=== PATIENT | female | born 1930 | race Caucasian/White ===

== ENCOUNTER → 2018-08-24 | Outpatient (CLI) | payer OTHER, MEDICARE ==
[~2018-08-24] VITALS: Ht 167.6 cm; Wt 49.9 kg
[~2018-08-24] MED LIST: ACID CONTROLLER20 MG PO; ASPIR 8181 MG PO; ATENOLOL 25MG T25 M1 PO; ATIVAN1 MG PO; AVAPRO300 MG PO; COLACE100 MG PO; COZAAR 50 MG TA50 M2 PO; DILTIAZEM ER180 MG PO; DILTIAZEM ER360 MG PO; ELIQUIS2.5 MG PO; EXFORGE 10-3201 EACH PO; FEVERALL650 MG RECTAL; FISH OIL 1,0001 EAC8 PO; FOSAMAX 70 MG T70 MG PO; LEVAQUIN 250 M250 MG PO; MAG-AL PLUS SUS30 ML PO; MILK OF MA2400 MG/10 PO; NICOTINE TRANSD21 M1 TRANSDERM; NICOTINE TRANSDE7 MG TD; OMEGA 3 1,0001 EACH PO; PEPCID20 MG PO; PLAVIX 75 MG TA75 M1 PO; PRAVACHOL20 MG PO; PREMARIN0.9 M1 PO; PROTONIX40 M1 PO; SENNA LAXATIVE1 EACH PO; SODIUM CHLORIDE 0.9% IV; SPIRONOLACTONE25 M1 PO; TENORMIN50 MG PO; TRINATE TABLET1 TAB PO; TYLENOL325 MG PO; UNICOMPLEX M TA1 TA1 PO; VITAMIN B-1100 M1 PO; VITAMIN B-12500 MCG PO; VITAMIN D1000 UNI1 PO; VITAMIN D31000 UNI2 PO
--- NOTE | ~2018-08-24 | P ---
[facility] [place] [address] PROCEDURE REPORT Name: YOJANA PRESSLEY [facility] #: [facility] [id number] Admission: 08/24/18 ������������������ Attend Phys: Nas Cedillo Discharge: ������������������ Date of : 32 Report #: [id number] THIS REPORT FOR: //name// CC: Nas Hernández MD DATE OF SERVICE: 08/24/2018 PROCEDURE PERFORMED: Colonoscopy with biopsies and bleeding control. HISTORY OF PRESENT ILLNESS: The patient is an 88-year-old female with intermittent bright red blood per rectum beginning approximately 6-7 weeks ago. She then held her Eliquis and Plavix, which she takes for history of CVA for 3 or 4 weeks. No further bleeding, but then had recurrent bleeding when it was restarted. Her weight has been fairly stable. She denies any constipation or diarrhea. Her last colonoscopy was approximately 10 years ago and reportedly had polyps at that time. There is no family history of colon cancer. She denies any abdominal pain. Plan is for colonoscopy. DESCRIPTION OF PROCEDURE: The risks and benefits of the procedure were explained to the patient, those risks including but not limited to bleeding, perforation and the risk of sedation. She understood these risks and gave informed consent. Sedation was given using propofol per Anesthesia. Next, a digital rectal exam showed small external hemorrhoids, nonbleeding, otherwise normal. Next, using a standard Olympus colonoscope, the scope was placed in the patient's anus and advanced under direct vision to the cecum. The overall prep was good. In the cecum, there was a 3 mm sessile polyp. This was removed with cold forceps. There was a small amount of bleeding after this was removed; therefore, I used a 7-Upper Sorbian bipolar cautery. No further bleeding was noted after cauterization. Otherwise, normal cecum. The ileocecal valve was normal. The ascending, transverse and descending colon were normal. In the sigmoid colon, another 4 mm sessile polyp was noted and removed with cold forceps. No evidence of bleeding after removal. Multiple diverticula were noted scattered throughout the sigmoid colon, no evidence of recent bleeding or inflammation. The rectal mucosa was normal. On retroflexion, small to medium sized nonbleeding internal hemorrhoids were noted. Close examination of the anal canal showed no evidence of anal fissure. There was no active bleeding. The scope was then withdrawn and the procedure terminated. The patient tolerated the procedure well. IMPRESSION: 1. Sigmoid diverticulosis, no stigmata of recent bleeding. [address] [address] PROCEDURE REPORT Name: YOJANA PRESSLEY Room #: REG ROE Villegas#: [id number] Admission: 08/24/18 ������������������ Attend Phys: Nas Cedillo Discharge: ������������������ Date of : 32 Report #: [id number] 2. Two small colonic polyps. 3. Small to medium sized internal hemorrhoids, likely cause of recent bright red blood per rectum. No active bleeding at this time. 4. Small external hemorrhoids. RECOMMENDATIONS: 1. Await biopsy results. 2. Recommend high fiber diet. 3. Analpram on a p.r.n. basis. Thank you for allowing me to participate in her care. ��������������������������������������������� ���������������������������������������� By: ��������������������������������������������� 1057 0057 Nas Andrade MD /nt
--- NOTE | 2018-08-25 14:06 | PATH ---
[facility] [address] [place] [address] PATHOLOGY RPT PROCEDURE Name: YOJANA BABCOCK Room #: REG ROE Arriaza.#: [id number] ������������������ Admission: 08/24/18 ������������������ Date of : 32 Discharge: Report #: [id number] Path Case #: [id number] [facility] Accession Number: [id number] . 01 Material submitted: . PART A: cecum - BX OF POLYP AT CECUM PART B: colon - BX OF POLYP AT SIGMOID COLON. Modifiers: sigmoid . 01 Clinical history: . Pre-OP DX: Blood in stool Post-OP DX: Internal hemorrhoids, diverticulosis, 2 polyps . 02 Diagnosis: A. Polyp, at cecum, endoscopic biopsy: - Tubular adenoma. - Negative for high-grade dysplasia. . B. Polyp, at sigmoid colon, endoscopic biopsy: - Tubular adenoma. - Negative for high-grade dysplasia. . (IUV:aristides; 08/25/2018) MBLoan/08/25/2018 . 02 Electronically signed: . Gisel Boone MD, Pathologist NPI- [id number] . 01 Gross description: . A. Received in formalin labeled "Yjoana Babcock, BX of polyp at cecum," is a single segment of gomes soft tissue measuring 0.5 cm in maximum dimension. The specimen is entirely submitted in cassette A1. . B. Received in formalin labeled "Yojana Babcock, BX of polyp at sigmoid colon," is a single segment of gomes soft tissue measuring 0.3 cm in maximum dimension. The specimen is entirely submitted in cassette B1. (TSD; 08/24/2018) TOB/TOB . 02 Pathologist provided ICD-10: D12.0, D12.5 . 02 CPT . 100678, 675902 Specimen Comment: A courtesy copy of this report has been sent to Specimen Comment: [phone], , . Specimen Comment: Report sent to JUSTIN Restrepo / [place] [address] PATHOLOGY RPT PROCEDURE Name: YOJANA BABCOCK Room #: REG ROE Villegas#: [id number] ������������������ Admission: 08/24/18 ������������������ Date of : 32 Discharge: Report #: [id number] Path Case #: [id number] Performed at: [address], [place], [place] [id number] MD Jose G Gonzalez MD Phone: [phone] Performed at: [address] [id number] MD Gisel Boone MD Phone: [phone]
== END | disposition home or self-care (01) ==
LOC: GI 08:18
DX: D12.0 Benign neoplasm of cecum (principal); D12.5 Benign neoplasm of sigmoid colon; K64.8 Other hemorrhoids; K57.30 Diverticulosis of large intestine without perforation or abscess without bleeding; K64.4 Residual hemorrhoidal skin tags; I10 Essential (primary) hypertension; E78.00 Pure hypercholesterolemia, unspecified; I48.91 Unspecified atrial fibrillation; M81.0 Age-related osteoporosis without current pathological fracture; K21.9 Gastro-esophageal reflux disease without esophagitis; F17.210 Nicotine dependence, cigarettes, uncomplicated; Z98.41 Cataract extraction status, right eye; Z95.5 Presence of coronary angioplasty implant and graft; Z79.899 Other long term (current) drug therapy; Z98.42 Cataract extraction status, left eye; Z98.890 Other specified postprocedural states; Z86.010 Personal history of colon polyps; Z79.01 Long term (current) use of anticoagulants; Z86.73 Personal history of transient ischemic attack (TIA), and cerebral infarction without residual deficits; Z90.710 Acquired absence of both cervix and uterus; Z88.0 Allergy status to penicillin; Z88.2 Allergy status to sulfonamides; Z88.6 Allergy status to analgesic agent
CPT/HCPCS: 62110; 62900

== ENCOUNTER → 2019-05-04 | Outpatient (CLI) | payer OTHER, MEDICARE ==
[~2019-05-04] MED LIST changes: +ATENOLOL 50MG T50 M1 PO
== END ==
LOC: SJCVCIMAG 09:10
DX: T82.898A Other specified complication of vascular prosthetic devices, implants and grafts, initial encounter (principal); I70.203 Unspecified atherosclerosis of native arteries of extremities, bilateral legs; I48.91 Unspecified atrial fibrillation; R94.31 Abnormal electrocardiogram [ECG] [EKG]; I25.10 Atherosclerotic heart disease of native coronary artery without angina pectoris; E78.00 Pure hypercholesterolemia, unspecified; I10 Essential (primary) hypertension; I48.0 Paroxysmal atrial fibrillation; Z79.899 Other long term (current) drug therapy; Z95.820 Peripheral vascular angioplasty status with implants and grafts; Y83.2 Surgical operation with anastomosis, bypass or graft as the cause of abnormal reaction of the patient, or of later complication, without mention of misadventure at the time of the procedure; Y92.89 Other specified places as the place of occurrence of the external cause

== ENCOUNTER 2019-05-08 11:01 | Inpatient (IN) | payer OTHER, MEDICARE ==
[2019-05-08] VITALS (17 sets, daily range): BP systolic 124–154; BP diastolic 58–87
[~2019-05-08] VITALS: Ht 167.6 cm; Wt 49.9 kg
[~2019-05-08 11:01] MED LIST changes: -ATENOLOL 50MG T50 M1 PO
[2019-05-08 11:51] LABS: HEMATOCRIT 42.7 % (37.0-47.0); HEMOGLOBIN 14.1 gm/dL (12.0-15.0); MCH 31.9 pg (26.0-34.0); MCHC 33.1 g/dL (28.0-37.0); MCV 96.4 fL (80.0-100.0); RBC 4.43 mil/uL (4.20-5.00); RDW 13.8 % (10.5-14.5); WBC 9.1 thou/uL (4.0-11.0)
[2019-05-08 12:00] LABS: CALCIUM 9.3 mg/dL (8.5-10.1); CREATININE 1.6 mg/dL (0.6-1.0); POTASSIUM 4.9 mmol/L (3.5-5.1)
--- NOTE | 2019-05-08 17:51 | NUR ---
PT ADMITTED TO ICU POST IR PROCEDURE. SHEATH TO RIGHT GROIN IN PLACE. TPN AND INTEGRILIN INFUSING. BOTH TO REMAIN ON WITH NO INFUSION RATE UNTIL PT IS TAKEN BACK TO LAB TOMORROW. STRICT BEDREST INITIATED. PUREWICK PLACED. UNABLE TO PALPATE PULSES IN LEFT FOOT. AFIB ON THE MONITOR. HX OF AFIB. WHILE COMPLETING ADMISSION ASSESSMENT, PT VOICED WANTING TO BE A DNR. COMMUNICATED WITH PHYSICIAN AND CHANGED ORDERS IN COMPUTER. TO BE NPO AT MIDNIGHT FOR PROCEDURE TOMORROW. ADMISSION ASSESSMENTS COMPLETE.
--- NOTE | 2019-05-08 18:47 | NUR ---
PT VSS. CPAP TRIAL THIS AM, TOLERATED THROUGH OUT AFTERNOON. POSSIBLE EXTUBATION TOMORROW? KUB DONE - ORDERS FOR MIRALAX. PT PROGRESSING.
--- NOTE | 2019-05-08 19:20 | NUR ---
PT ADMITTED AT 1511 WITH MINIMAL ORDERS POST PROCEDURE. INTEGRILIN, TPA AND FLUIDS INFUSING UPON ARRIVAL. NO ORDERS IN EMAR FOR INTEGRILIN GTT. NO ORDERS ON WEATHER TO DRAW LABS FOR MANAGEMENT OF TPA. PAGED DR. TORRES AT 1530, NO RETURN PAGE. ORDER FOR INTEGRILIN PLACED AT [address] GASCA. SECOND PAGE TO DR. TORRES AT 1630 FOR ORDERS AND CLARIFICATION. NO RETURN PAGE BY PROVIDER. SPOKE WITH MARY ARMENTA AT 1700, CLARIFICATION RECIEVED THAT DR. TORRES WOULD NO LIKE ANY LABS TO BE DRAWN AND TO MAINTAIN TPA AT CURRENT RATE UNTIL TAKEN FOR PROCEDURE TOMORROW. ALSO CLARIFIED CODE STATUS PATIENT REQUESTS TO BE DNR.
[2019-05-09] VITALS (29 sets, daily range): BP systolic 85–151; BP diastolic 34–104
[2019-05-09 05:22] LABS: CALCIUM 8.3 mg/dL (8.5-10.1); CREATININE 1.2 mg/dL (0.6-1.0); POTASSIUM 4.6 mmol/L (3.5-5.1)
[2019-05-09 05:29] LABS: MCH 31.5 pg (26.0-34.0); MCHC 32.6 g/dL (28.0-37.0); MCV 96.6 fL (80.0-100.0); RBC 3.83 mil/uL (4.20-5.00); RDW 13.6 % (10.5-14.5); WBC 8.1 thou/uL (4.0-11.0)
[2019-05-09 05:37] LABS: HEMOGLOBIN 12.1 gm/dL (12.0-15.0)
--- NOTE | 2019-05-09 05:48 | NUR ---
PATIENT ALERT AND ORIENTED X4, NO COMPLAINTS OF PAIN. A-FIB ON BOOK AUTHOR. RIGHT GROIN SHEATH IN PLACE, TPA AND INTEGROLIN INFUSING. PATIENT RESTED OVER NIGHT, NO SIGNIFICANT EVENTS. REPEAT CATH DISCUSSED WITH PATIENT. PATIENT VERBALIZED UNDERSTANDING. NO SIGN OF ACUTE DISTRESS NOTED AT THIS TIME. WILL CONTINUE TO MONITOR.
--- NOTE | 2019-05-09 09:12 | NUR ---
Assess due to low BMI 17.8. Admit with PAD. Hx cva, htn, copd. NPO status for procedure. Did eat 75% of dinner last night. Wt trends appears stable since 08/2018. Low nutrition risk at this time
--- NOTE | 2019-05-09 11:58 | NUR ---
pt off unit. taken to labor custodian with labor custodian RN nay for follow up procedure.
--- NOTE | 2019-05-09 15:09 | NUR ---
PT ADMITTED RELATED TO CATH/ADBO AORTOGRAM LOWER EXTREMITY RUNOFF/LERO. CM REVIEWED CHART AND SPOKE WITH CARE TEAM. CM MET WITH PT AT BEDSIDE THIS DAY. PT IS A&O X4. CM ROLE INTRODUCED. PT INDICATED SHE LIVES ALONE IN A VARNER WITH NO STEPS TO ENTER AND NO STEPS INSIDE. PT INDICATED SHE HAS A WALKER AND A WC FOR ASSISTANCE WIH MOBILIY. PT INDICATED SHE HAD BEEN TO [facility] AFTER A STROKE YEARS AGO. PT INDICATED SHE DIDN'T RECALL HAVING SERVICES. PT INDICATED THAT HER GDTR RESIDES ACROSS THE STREET. CM CALLED AND LEFT FOR PT'S DTR. PT INDICATED SHE HOPES TO BE ABLE TO RETURN HOME ONCE MEDICALLY STABLE. CM TO FOLLOW INIDCATED WITH DC PLANNING.
--- NOTE | 2019-05-09 15:28 | NUR ---
PT RETURNED TO ICU POST PROCEDURE IN [facility]ARE NURSE. ALERT/ORIENTED. RIGHT GROIN SITE DRESSING C/D/I. NO HEMATOMA. PT INSTRUCTED ON BEDREST UNTIL 1700. AFIB ON THE MONTIOR, HEART RATE WILL GO UP TO 140'S AT TIMES BUT NOT SUSTAINED. NOTIFIED CARDIOLOGY. IV FLUIDS INFUSING. TRANSFER ORDERS FOR CCU.
--- NOTE | 2019-05-09 20:39 | NUR ---
PT WITH INCREASED HEART RATE AFTER ADMINISTRATION OF LOPRESSOR. CALLED TERRAZZO GRINDER. ORDERS RECIEVED. RIGHT GROIN SITE, CDI. OFF BEDREST AT 1700.
--- NOTE | 2019-05-09 23:30 | NUR ---
ASSUMED CARE OF PT AT 1900. PT HR ELEVATED AND BP LOW. ONE TIME DOSE OF METOPROLOL HELD, AND ATENOLOL GIVEN WHEN DUE. BP HAD IMPROVED SOME WHEN ATENOLOL GIVEN. HR LOWERED AND NO FURTHER ISSUES WITH BP. R GROIN DRESSING C/D/I; AREA BRUISED, BUT NO HEMATOMA PRESENT. PT TX'd TO CCU AT 2320. REPORT GIVEN TO AYAAN RN AT 2255. R GROIN SITE EXAMINED WITH AYAAN AT BEDSIDE UPON ARRIVAL IN CCU.
[2019-05-10 01:23] VITALS: BP 135/83
[2019-05-10 04:19] VITALS: BP 142/88
--- NOTE | 2019-05-10 04:56 | NUR ---
PT RECEIVE FROM ICU AT ABOUT 2300 FROM [facility]. PT DENIES ANY PAIN, BUT SORENESS IN THE RIGHT GROIN SITE, S/P CATH. SITE EVALUATED WITH NURSING UNIT COORDINATOR,NOTED SMALL ENDURATION, BUT SOFT TO TOUCH AND NO BLEEDING UNDER THE DRESSING. PT REMAINS AFIB ON THE MONITOR, TACHY WITH ACTIVITIES. INITIAL VSS. PT DENIES ANY OTHER CONCERN. WILL CONTINUE TO MONITOR
[2019-05-10 05:28] LABS: HEMATOCRIT 35.8 % (37.0-47.0); HEMOGLOBIN 11.7 gm/dL (12.0-15.0); MCH 31.8 pg (26.0-34.0); MCHC 32.7 g/dL (28.0-37.0); MCV 97.4 fL (80.0-100.0); RBC 3.68 mil/uL (4.20-5.00); RDW 13.7 % (10.5-14.5); WBC 9.4 thou/uL (4.0-11.0)
[2019-05-10 07:00] VITALS: BP 123/73
[2019-05-10] MEDS ORDERED: ATENOLOL 50MG T50 M1 PO (08:01)
[2019-05-10 11:39] VITALS: BP 123/73
--- NOTE | 2019-05-10 12:56 | NUR ---
ASSUMED CARE OF PT AT SHIFT CHANGE. ASSESSMENT CHARTED. MEDS GIVEN PER JUN. PT A&OX4. NO C/O PAIN OR SOA. GROIN SITE BRUISED BUT REMAINS SOFT AND DRESSING CDI. DISCHARGE ORDERS AND INSTRUCTIONS COMPLETE. TELE AND IV DC'D.
[2019-05-10 13:31] VITALS: BP 123/73
--- NOTE | 2019-05-25 11:20 | EKG ---
[address] [place] [address] ELECTROCARDIOGRAM REPORT Name: YOJANA PRESSLEY Room #: 213-P [facility] IN .R.#: [id number] Admission: 05/08/19 Attend Phys: Lavon Norwood MD Discharge: 05/10/19 Date of : 32 Report #: [id number] THIS REPORT FOR: //name// [facility] Test Date: 2019-05-09 Test Time: 07:13:23 Pat Name: YOJANA PRESSLEY Department: Room: [facility] Gender: F Topographic Computator: [place] : 1930 Requested By: Dakota Joy Order Number: [id number] : Matthew Santiago Measurements Intervals [place] Rate: 114 P: [place]: QRS: 99 QRSD: 80 T: 59 QT: 273 QTc: 376 Interpretive Statements Atrial fibrillation Right axis deviation Low voltage, extremity leads Borderline ST depression, lateral leads Compared to ECG 08/06/2014 09:30:42 Electronically Signed On 05-09-2019 8:02:59 HEAD MECHANIC by Matthew Santiago [email or web address] <ELECTRONICALLY SIGNED> By: Matthew Santiago MD 05/09/19801 2 2 Matthew Santiago MD /YUNIOR
== END 2019-05-10 12:45 | disposition home or self-care (01) | DRG 252 ==
LOC: CATH 11:01 → ICU 15:31 → CATH 15:32 → ICU 15:32 → CATH 15:59 → 2N 05-09 14:19 → ENTRNSPT 05-10 12:49 → EDTRNSPTSTS 05-10 12:53
PROVIDERS: Nuclear Medicine Nuclear Cardiology; Nurse Practitioner Adult Health; ADMIT Internal Medicine Cardiovascular Disease
DX: T82.858A Stenosis of other vascular prosthetic devices, implants and grafts, initial encounter (principal); N17.0 Acute kidney failure with tubular necrosis; I73.9 Peripheral vascular disease, unspecified; T82.856A Stenosis of peripheral vascular stent, initial encounter; I25.10 Atherosclerotic heart disease of native coronary artery without angina pectoris; I65.29 Occlusion and stenosis of unspecified carotid artery; I10 Essential (primary) hypertension; E78.5 Hyperlipidemia, unspecified; I48.0 Paroxysmal atrial fibrillation; J44.9 Chronic obstructive pulmonary disease, unspecified; F17.200 Nicotine dependence, unspecified, uncomplicated; Z79.899 Other long term (current) drug therapy; Z79.01 Long term (current) use of anticoagulants; Y83.8 Other surgical procedures as the cause of abnormal reaction of the patient, or of later complication, without mention of misadventure at the time of the procedure; Y92.89 Other specified places as the place of occurrence of the external cause; Z71.6 Tobacco abuse counseling
CPT/HCPCS: 10078; 10081

== ENCOUNTER → 2019-06-07 | Outpatient (CLI) | payer OTHER, MEDICARE ==
[~2019-06-07] MED LIST changes: +ATENOLOL 50MG T50 M1 PO
== END ==
LOC: SJCVCIMAG 10:09
DX: I65.23 Occlusion and stenosis of bilateral carotid arteries (principal); I73.9 Peripheral vascular disease, unspecified; E78.00 Pure hypercholesterolemia, unspecified; I25.10 Atherosclerotic heart disease of native coronary artery without angina pectoris; I48.21 Permanent atrial fibrillation; D68.59 Other primary thrombophilia; I10 Essential (primary) hypertension; Z86.73 Personal history of transient ischemic attack (TIA), and cerebral infarction without residual deficits

== ENCOUNTER → 2019-09-12 | Outpatient (CLI) | payer OTHER, MEDICARE | LOC: SJCVCIMAG 10:44 | DX: I70.202 Unspecified atherosclerosis of native arteries of extremities, left leg (principal); I25.10 Atherosclerotic heart disease of native coronary artery without angina pectoris; I48.21 Permanent atrial fibrillation; I10 Essential (primary) hypertension; J44.9 Chronic obstructive pulmonary disease, unspecified; E78.00 Pure hypercholesterolemia, unspecified; Z95.820 Peripheral vascular angioplasty status with implants and grafts ==

== ENCOUNTER 2019-11-01 13:07 | Inpatient (IN) | payer OTHER, MEDICARE ==
[~2019-11-01] VITALS: Ht 167.6 cm; Wt 50.8 kg
[2019-11-01] VITALS (15 sets, daily range): BP systolic 106–132; BP diastolic 47–99
--- NOTE | ~2019-11-01 | HC ---
[facility] [place] [address] CONSULTATION Name: YOJANA PRESSLEY Room #: 250-P [facility] IN M.R.#: [id number] Admission: 11/02/19 Attend Phys: Lavon Norwood MD Discharge: 11/04/19 Date of : 32 Report #: [id number] THIS REPORT FOR: cc: [facility] - Family physician unknown FAM - Family physician unknown Mark Greenfield MD ~ CC: Lavon Norwood [facility] unknown Dakotasam Joy REASON FOR CONSULTATION: Chronic kidney disease. REASON FOR PRESENTATION: Left foot and heel pain. HISTORY OF PRESENT ILLNESS: An 89-year-old with past medical history of coronary artery disease, peripheral vascular disease status post left fem-pop bypass. She is also known to have all the risk factors for peripheral vascular disease including hypertension and hyperlipidemia. She called the office complaining that she had some issues with left heel discoloration and foot pain. She had an angiogram that revealed occluded left fem-pop bypass mandating an intervention that was done on the . She ran into issues with hyperkalemia during her hospital stay with a potassium as high as 6.7. The patient is known to have chronic kidney disease with a baseline creatinine of around 1.7 most recently. On arrival to the hospital back on the , her creatinine was 2.7 and this has gone down to 1.7. Her hyperkalemia was managed medically and her potassium this morning is down to 5.2. She is mildly acidotic. PAST MEDICAL HISTORY: 1. Coronary artery disease. 2. Peripheral vascular disease post fem-pop bypass. 3. Chronic obstructive pulmonary disease. 4. Remote history of cerebrovascular accident. 5. Hyperlipidemia. 6. AFib. 7. Carotid artery disease. 8. Post-hysterectomy. 9. Post-tonsillectomy. MEDICATIONS: 1. Olmesartan. 2. Atenolol. 3. Pravastatin. 4. Plavix. 5. Spironolactone. ALLERGIES: PENICILLIN and SULFA. [facility] [address] [place] [address] CONSULTATION Name: YOJANA PRESSLEYZABETH Room #: [facility] IN ..#: [id number] Admission: 11/02/19 Attend Phys: Lavon Norwood MD Discharge: 11/04/19 Date of : 32 Report #: [id number] FAMILY HISTORY: No known chronic kidney disease. REVIEW OF SYSTEMS: GENERAL: No fever or chills. CARDIOVASCULAR: No chest pain or palpitation. PULMONARY: No cough or hemoptysis. GASTROINTESTINAL: No nausea or vomiting. GENITOURINARY: No frequency, no urgency. MUSCULOSKELETAL: As per the history of present illness. PHYSICAL EXAMINATION: VITAL SIGNS: Pulse rate is 87, blood pressure is 105/57, temperature is 36.7. Pulse ox 94. HEAD AND NECK: No jugular venous distention, no bruit, no thyromegaly. CHEST: Clear to auscultation bilaterally. CARDIOVASCULAR: No rub detected. ABDOMEN: Soft, nontender. EXTREMITIES: Lower extremities: No edema with multiple bruises. Upper extremities: Multiple bruises. LABORATORY VALUES: Sodium 139, potassium 5.2, carbon dioxide 19, BUN 39, creatinine 1.7. ASSESSMENT AND PLAN: 1. Chronic kidney disease. 2. Hyperkalemia. 3. Post-angio with an occluded fem-pop bypass requiring intervention. 4. The patient's hyperkalemia is related to her chronic kidney disease, intake of angiotensin receptor ramos and Aldactone. Metabolic acidosis is also contributing to this. I will treat her hyperkalemia yet again today. 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 Keep on Veltassa for now. 5. Keep off angiotensin receptor ramos and Aldactone. By: 0931 [id number] Mark Greenfield MD /nt
[~2019-11-01 13:07] MED LIST changes: -ATENOLOL 25 MG25 M1 PO; -DILTIAZEM ER180 M2 PO
[2019-11-01 13:45] LABS: HEMATOCRIT 44.1 % (37.0-47.0); HEMOGLOBIN 14.7 gm/dL (12.0-15.0); MCH 32.3 pg (26.0-34.0); MCHC 33.4 g/dL (28.0-37.0); MCV 96.8 fL (80.0-100.0); RBC 4.56 mil/uL (4.20-5.00); RDW 15.6 % (10.5-14.5); WBC 9.3 thou/uL (4.0-11.0)
[2019-11-01 13:52] LABS: CALCIUM 10.2 mg/dL (8.5-10.1); CREATININE 2.7 mg/dL (0.6-1.0); POTASSIUM 5.6 mmol/L (3.5-5.1)
[2019-11-01] MEDS ORDERED: ATENOLOL 25 MG25 M1 PO (15:29)
[2019-11-01] MEDS ORDERED: DILTIAZEM ER180 M2 PO (15:29)
[2019-11-02] VITALS (27 sets, daily range): BP systolic 84–134; BP diastolic 10–86
--- NOTE | 2019-11-02 05:12 | NUR ---
Assumed care of pt at 2300, she rouses easily, is alert and oriented, and reports sensation is returning to her left foot/heel, the extremity is warming, pulses are difficult to palpate/dopple, but the color is better, and she continues to deny any discomfort. Vitals have been stable, she is afebrile, her breath sounds are diminished, she is on room air, sats have been 95% and above. Heart tones are distant, 2/1 pulses without edema. She has a sheath to the rt groin that is w/o bruising/hematoma, she denies any numbness or tingling distally, and remains on the alteplase and integrilin drips. A pure wick was placed, monitoring output, she did receive pericare for a small loose stool. Pt to be NPO after 0800 for possible stenting this afternoon. The bed is in the low/locked position, the call light is within reach, the siderails are up x 4 and she is progressing towards her POC goals. Will continue to monitor.
[2019-11-02 06:22] LABS: HEMATOCRIT 37.4 % (37.0-47.0); MCHC 33.9 g/dL (28.0-37.0); MCV 97.5 fL (80.0-100.0); RBC 3.84 mil/uL (4.20-5.00); WBC 8.2 thou/uL (4.0-11.0)
[2019-11-02 06:38] LABS: HEMOGLOBIN 12.7 gm/dL (12.0-15.0)
[2019-11-02 06:41] LABS: ALBUMIN 2.8 g/dL (3.4-5.0); CALCIUM 8.4 mg/dL (8.5-10.1); CREATININE 2.2 mg/dL (0.6-1.0); TOTAL BILIRUBIN 0.6 mg/dL (0.2-1.0); TOTAL PROTEIN 5.8 g/dL (6.4-8.2)
[2019-11-02 07:08] LABS: POTASSIUM 6.1 mmol/L (3.5-5.1)
--- NOTE | 2019-11-02 08:15 | EKG ---
[facility] [place] [address] ELECTROCARDIOGRAM REPORT Name: YOJANA PRESSLEY Room #: 250-P [facility] M.R.#: [id number] Admission: 11/01/19 Attend Phys: Lavon Norwood MD Discharge: Date of : 32 Report #: [id number] THIS REPORT FOR: cc: FAM - Family physician unknown FAM - Family physician unknown Israel Gayle MD [facility] THIS REPORT FOR: //name// [facility] Test Date: 2019-11-02 Test Time: 07:05:26 Pat Name: YOJANA PRESSLEY Department: Room: 250 P Gender: F Marketing Professional: [place] : 1930 Requested By: Dakota Joy Order Number: [id number] MD: Israel Gayle Measurements Intervals [place] Rate: 94 P: [place]: QRS: 88 QRSD: 96 T: 207 QT: 331 QTc: 414 Interpretive Statements Atrial fibrillation Borderline right axis deviation Borderline low voltage, extremity leads Nonspecific ST and T wave abnormality Baseline wander in lead(s) V4 Compared to ECG 05/09/2019 07:13:23 No significant change was found Electronically Signed On 11-02-2019 8:15:21 CDT by Israel Gayle [email or web address] <ELECTRONICALLY SIGNED> By: Israel Gayle MD, [facility] 11/02/1915 4 4 Israel Gayle MD, [facility] /EPI
--- NOTE | 2019-11-02 10:00 | NUR ---
PATIENT'S DAUGHTER, MALIA, CALLED IN AND STATED THAT SHE IS HAVING A PROCEDURE DONE AND WILL NOT BE ABLE TO SEE HER MOTHER, REQUESTED THAT HER SISTER, YOJANA MYERS, WHO IS LISTED SECOND ON HER DPOA BE ALLOW TO SEE HER. PATIENT IS IN AGREEMENT WITH THIS PLAN. MESSAGE LEFT WITH DOUGH BRAKE MACHINE OPERATOR TO SEE IF THIS PLAN IS POSSIBLE.
[2019-11-02 13:44] LABS: CALCIUM 8.4 mg/dL (8.5-10.1); CREATININE 2.1 mg/dL (0.6-1.0)
--- NOTE | 2019-11-02 14:03 | NUR ---
Patient to Intervential Radiology for follow up of left femoral artery flow, via bed with IR staff.
--- NOTE | 2019-11-02 14:13 | NUR ---
Updated daughter by phone as her mother has been taken over to IR for the follow up procedure. Also discuss her forgetfulness and she wants to be called to review the discharge instructions with her when the patient is dischargd.
--- NOTE | 2019-11-02 18:43 | NUR ---
PATIENT CONFUSED AND IMPULSIVE. REQUIRES FREQUENT REDIRECTION AND REORIENTATION. PATIENT ON STRICT BEDREST FOR 8 HOURS. PATIENT PULLING AT LINES. PATIENT'S IV CAME OUT. MULTIPLE STICKS ATTEMPTED TO GET IV ACCESS. NOTIFIED VASCULAR ACCESS NURSE; SHE CAME TO BEDSIDE AND GOT AN IV ACCESS PLACED IN UPPER RIGHT ARM. PATIENT HAD EPISODE OF BROWN COFFEE GROUNDS EMESIS. NOTIFIED CARDIOLOGY OF CURRENT PATIENT STATUS. DR TORRES CAME TO BEDSIDE TO EVALUATE PATIENT. PRN ZOFRAN ORDERED AND GIVEN. ORDER TO HOLD PLAVIX DOSE THIS EVENING.
[2019-11-03] VITALS (18 sets, daily range): BP systolic 93–131; BP diastolic 35–69
--- NOTE | 2019-11-03 06:18 | NUR ---
Received report from offgoing and assumed patient care. Patient is AAOx3 and is on room air. Atrial fibrillation is on the monitor. Patient restless and moves the RLE. Patient educated several times as to why she needs to keep the leg straight to no avail. Patient has a hematoma on the right groin. Dressing is CDI and no evidence of bleeding is noted. Pulses are 2+ in all extremeties Patient's VS remained stable and no acute events occurred throughout this shift. Patient is progressing towards goal.
[2019-11-03 06:20] LABS: ALBUMIN 2.9 g/dL (3.4-5.0); CALCIUM 8.7 mg/dL (8.5-10.1); CREATININE 1.7 mg/dL (0.6-1.0); TOTAL BILIRUBIN 0.6 mg/dL (0.2-1.0); TOTAL PROTEIN 6.2 g/dL (6.4-8.2)
[2019-11-03 06:27] LABS: POTASSIUM 6.7 mmol/L (3.5-5.1)
--- NOTE | 2019-11-03 08:43 | NUR ---
ASSUMED PATIENT CARE AT 0700. PATIENT AWAKE AND ALERT; VSS ON RM AIR. AM K. 6.7, CARDIOLOGY NOTIFIED; PER CARDIOLOGY WILL CONSULT NEPHROLOGY FOR F/U.
--- NOTE | 2019-11-03 09:02 | NUR ---
Assess due to low BMI 18.1. Admit with PVD, + tobacco use. On heart healthy diet and demonstrating good appetite. Wts have been low side for > 1 year without any significant change. Low nutrition risk
--- NOTE | 2019-11-03 09:10 | EKG ---
[facility] [place] [address] ELECTROCARDIOGRAM REPORT Name: YOJANA PRESSLEY Room #: 250-P ADM IN M.R.#: [id number] Admission: 11/02/19 Attend Phys: Lavon Norwood MD Discharge: Date of : 32 Report #: [id number] THIS REPORT FOR: cc: FAM - Family physician unknown FAM - Family physician unknown Israel Gayle MD [facility] THIS REPORT FOR: //name// [facility] Test Date: 2019-11-03 Test Time: 08:16:59 Pat Name: YOJANA PRESSLEY Department: Room: 250 P Gender: F Clarifier Operator: [place] : 1930 Requested By: Mariella Lux Order Number: [id number] MD: Israel Gayle Measurements Intervals [place] Rate: 107 P: [place]: QRS: 68 QRSD: 74 T: QT: 407 QTc: 543 Interpretive Statements Atrial fibrillation Nonspecific ST and T wave abnormality Prolonged QT interval Compared to ECG 11/02/2019 07:05:26 No significant change was found Electronically Signed On 11-03-2019 9:09:58 CDT by Israel Gayle [email or web address] <ELECTRONICALLY SIGNED> By: Israel Gayle MD, [facility] 11/03/1909 5 5 Israel Gayle MD, [facility] /EPI
[2019-11-03 10:40] LABS: HEMATOCRIT 33.2 % (37.0-47.0); MCH 32.2 pg (26.0-34.0); MCHC 32.4 g/dL (28.0-37.0); MCV 99.3 fL (80.0-100.0); RBC 3.34 mil/uL (4.20-5.00); RDW 15.7 % (10.5-14.5); WBC 8.4 thou/uL (4.0-11.0)
[2019-11-03 10:44] LABS: HEMOGLOBIN 10.7 gm/dL (12.0-15.0)
[2019-11-03 10:49] LABS: CALCIUM 8.8 mg/dL (8.5-10.1); CREATININE 1.8 mg/dL (0.6-1.0); POTASSIUM 5.8 mmol/L (3.5-5.1)
--- NOTE | 2019-11-03 16:45 | NUR ---
PT ADMITED 10/31 RELATED TO LERO. CM REVIEWED CHART AND SPOKE WITH CARE TEAM. CM ATTEMPTED NUMEROUS TIME TO CONTACT PT'S DTR MALIA WITH NO SUCCESS NO OPTION FOR VM. PT RESIDES IN A VARNER ALONE. CHART INDICATES PT HAD USED A FWW AND A WC TO ASSIST WITH MOBILITY. PT HAD BEEN TO [facility] YEARS AGO. CHART INDICATES THAT PT'S GDTR LIVES ACROSS THE [place]REE[place] FROM HER. PT TO ASSESS NOTE SEEN OF THIS NOTE. SHOULD PT BE MEDICALLY STABLE TO DC OVER WEEKEND AND NEED HH SERVICES CONTACT [facility] AT AND FAX ORDERS TO .
--- NOTE | 2019-11-03 19:01 | NUR ---
ASSUMED PATIENT CARE AT 0700; PATIENT AWAKE, ALERT ON RM AIR WITH STABLE VSS. K. 6.7 - CARDIOLOGY NOTIFIED AND CONSULED NEPHROLOGY FOR MANAGEMENT. REPEAT K. 5.8, WILL CONTINUE TO MONITOR AND GIVE INSULIN/DEXTROSE/ALBUTEROL PER NEPHROLOGY ORDERS. TRANSFER TO CCU PER CARDIOLOGY ORDERS. FAMILY CALLED AND UPDATED ON STATUS AND POC.
[2019-11-04] VITALS: BP 118/59
[2019-11-04 04:00] VITALS: BP 102/45
[2019-11-04 05:10] LABS: ALBUMIN 2.7 g/dL (3.4-5.0); CALCIUM 8.6 mg/dL (8.5-10.1); CREATININE 1.7 mg/dL (0.6-1.0); PHOSPHORUS 3.2 mg/dL (2.5-4.9); POTASSIUM 5.2 mmol/L (3.5-5.1)
--- NOTE | 2019-11-04 05:40 | NUR ---
Received report from offgoing RN and assumed patient care. Patient is AAOx4, A-fib on the monitor, is on room air. Patient's VS remained stable and no acute events occurred during this shift. Patient is progressing towards goal.
[2019-11-04 10:47] VITALS: BP 105/57
[2019-11-04 12:59] VITALS: BP 105/57
--- NOTE | 2019-11-04 19:20 | NUR ---
Patient and patients daughter, Denise, received discharge instructions and information on their follow up appointment. They received education on what they should be monitoring for and how to contact their physicians with any questions. They will report to the cardiology office for a redraw on patients potassium and follow up with Dr. Joy. Patient was succesfully discharged with daughter around 1226 this morning. Patient took home her glasses and clothes.
--- NOTE | 2019-11-06 07:47 | EKG ---
[facility] [place] [address] ELECTROCARDIOGRAM REPORT Name: YOJANA PRESSLEY Room #: 250-P DIS IN M.R.#: [id number] Admission: 11/02/19 Attend Phys: Lavon Norwood MD Discharge: 11/04/19 Date of : 32 Report #: [id number] THIS REPORT FOR: cc: [facility] - Family physician unknown FAM - Family physician unknown Israel Gayle MD [facility] ~ THIS REPORT FOR: //name// [facility] Test Date: 2019-11-04 Test Time: 07:56:47 Pat Name: YOJANA PRESSLEY Department: Room: 250 P Gender: F Director Of Strategic Sales: Loan GODFREY : 1930 Requested By: Mariella Lux Order Number: [id number] MD: Israel Gayle Measurements Intervals [place] Rate: 94 P: [place]: QRS: 74 QRSD: 88 T: 181 QT: 340 QTc: 426 Interpretive Statements Atrial fibrillation Nonspecific ST and T wave abnormality Compared to ECG 11/03/2019 08:16:59 Prolonged QT interval no longer present Electronically Signed On 11-06-2019 7:46:51 CDT by Israel Gayle [email or web address] <ELECTRONICALLY SIGNED> By: Israel Gayle MD, [facility] 11/06/19 [id number] Israel Gayle MD, [facility] /EPI
--- NOTE | 2019-11-08 15:01 | D ---
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 Taken by Dr. Norwood to the interventional lab. There was felt to be an acute occlusion of this graft with occlusion of the outflow of the left popliteal artery and left anterior tibial artery. Subsequently, angioplasty of the left popliteal and proximal tibial artery with initiation of TPA thrombolysis. They were slow, then restored throughout the bypass grafts and the outflow vessel. These are moderately diseased and certainly could be an issue going forward. This hospitalization was then complicated by hyperkalemia. Despite the fact the creatinine remained stable, potassium arose into the mid 6s. [place] to be residual from spironolactone and ARB according to Nephrology. Has been treated with bicarbonate, D50. Subsequently now, potassium 5.2. We will give some bicarbonate and D50 again this morning, but ____ we can discharge. She will be discharged to home. Holding the ARB and Aldactone for now. Eliquis 2.5 q. 12 hours. Plavix 75 will be the regimen. Diltiazem 180, atenolol 50 b.i.d. Again holding the ARB and Aldactone, hopefully to reinitiate ARB later in the week with a repeat lab. DISCHARGE DIAGNOSES: 1. Acute occlusion of the left fem-pop graft with thrombolysis and DIKE SUPERVISOR of outflow arteries as stated above. 2. Hyperkalemia which is now resolved due to as stated above. 3. Chronic kidney disease. 4. Permanent atrial fibrillation. 5. Hypertension. 6. Coronary artery disease, stable disease per catheterization last in 2017. 7. History of carotid disease. 8. History of cerebrovascular accident. 9. Chronic obstructive pulmonary disease with longstanding tobacco use. As always, tobacco usage cessation has been strongly recommended. She will be going home with her daughters and then she still lives independently. Followup will be with nurse practitioner in office with a repeat chemistry in [address] [address] DISCHARGE SUMMARY Name: YOJANA PRESSLEY Room #: 250-P [facility] IN M.R.#: [id number] Admission: 11/02/19 Attend Phys: Lavon Norwood MD Discharge: 11/04/19 Date of : 32 Report #: [id number] Thank you for asking me to assist in the care of this patient. <ELECTRONICALLY SIGNED> By: Dakota Joy MD, [facility] 11/08/19 1501 1004 1027 Dakota Joy MD, FACC /nt
== END 2019-11-04 12:26 | disposition home or self-care (01) | DRG 252 ==
LOC: CATH 13:07 → ICU 20:17 → CATH 11-02 11:57 → ICU 11-02 11:58
PROVIDERS: Hospitalist; Nurse Practitioner Adult Health; ADMIT Internal Medicine Cardiovascular Disease; ATTEND Nuclear Medicine Nuclear Cardiology
PROC: 047N3ZZ Dilation of Left Popliteal Artery, Percutaneous Approach (ICD-10-PCS; principal; 2019-11-02)
PROC: 047Q3ZZ Dilation of Left Anterior Tibial Artery, Percutaneous Approach (ICD-10-PCS; principal; 2019-11-02)
PROC: 3E05317 Introduction of Other Thrombolytic into Peripheral Artery, Percutaneous Approach (ICD-10-PCS; principal; 2019-11-02)
PROC: B418ZZZ Fluoroscopy of Bilateral Renal Arteries (ICD-10-PCS; principal; 2019-11-02)
DX: I82.412 Acute embolism and thrombosis of left femoral vein (principal); N17.0 Acute kidney failure with tubular necrosis; D68.69 Other thrombophilia; I48.21 Permanent atrial fibrillation; I25.10 Atherosclerotic heart disease of native coronary artery without angina pectoris; I77.9 Disorder of arteries and arterioles, unspecified; I73.9 Peripheral vascular disease, unspecified; E78.00 Pure hypercholesterolemia, unspecified; J44.9 Chronic obstructive pulmonary disease, unspecified; N18.9 Chronic kidney disease, unspecified; M19.90 Unspecified osteoarthritis, unspecified site; I12.9 Hypertensive chronic kidney disease with stage 1 through stage 4 chronic kidney disease, or unspecified chronic kidney disease; E78.5 Hyperlipidemia, unspecified; E87.5 Hyperkalemia; F17.210 Nicotine dependence, cigarettes, uncomplicated; Z88.5 Allergy status to narcotic agent; Z88.0 Allergy status to penicillin; Z86.73 Personal history of transient ischemic attack (TIA), and cerebral infarction without residual deficits; Z88.2 Allergy status to sulfonamides; Z88.8 Allergy status to other drugs, medicaments and biological substances; Z79.899 Other long term (current) drug therapy; Z79.01 Long term (current) use of anticoagulants; Z90.710 Acquired absence of both cervix and uterus; Z90.89 Acquired absence of other organs
CPT/HCPCS: 10078

== ENCOUNTER → 2019-11-01 | Outpatient (CLI) | payer OTHER, MEDICARE ==
[~2019-11-01] MED LIST changes: +ATENOLOL 25 MG25 M1 PO; +DILTIAZEM ER180 M2 PO
== END ==
LOC: SJCVCIMAG 09:53
PROVIDERS: ATTEND Nuclear Medicine Nuclear Cardiology
DX: I70.202 Unspecified atherosclerosis of native arteries of extremities, left leg (principal)

== ENCOUNTER → 2019-11-08 | Outpatient (CLI) | payer OTHER, MEDICARE ==
[~2019-11-08] MED LIST changes: +ATENOLOL 25 MG25 M1 PO; +DILTIAZEM ER180 M2 PO
== END ==
LOC: SJCVC 11:51
PROVIDERS: ATTEND Internal Medicine Cardiovascular Disease
DX: R94.31 Abnormal electrocardiogram [ECG] [EKG] (principal); K92.1 Melena; I73.9 Peripheral vascular disease, unspecified; J44.9 Chronic obstructive pulmonary disease, unspecified; I48.21 Permanent atrial fibrillation; I25.10 Atherosclerotic heart disease of native coronary artery without angina pectoris; D68.59 Other primary thrombophilia; I65.23 Occlusion and stenosis of bilateral carotid arteries; I10 Essential (primary) hypertension; F17.210 Nicotine dependence, cigarettes, uncomplicated; Z79.899 Other long term (current) drug therapy; Z82.49 Family history of ischemic heart disease and other diseases of the circulatory system

== ENCOUNTER → 2019-11-13 | Outpatient (CLI) | payer OTHER, MEDICARE | LOC: SJCVC 11:28 | PROVIDERS: ATTEND Nuclear Medicine Nuclear Cardiology | DX: D64.9 Anemia, unspecified (principal) ==

== ENCOUNTER → 2019-11-21 | Outpatient (CLI) | payer OTHER, MEDICARE ==
[~2019-11-21] MED LIST changes: +VALIUM5 MG PO
== END ==
LOC: SJCVC 10:07
PROVIDERS: ATTEND Internal Medicine Cardiovascular Disease
DX: I48.21 Permanent atrial fibrillation (principal); R94.31 Abnormal electrocardiogram [ECG] [EKG]; I73.9 Peripheral vascular disease, unspecified; I10 Essential (primary) hypertension; I25.10 Atherosclerotic heart disease of native coronary artery without angina pectoris; E78.00 Pure hypercholesterolemia, unspecified; J44.9 Chronic obstructive pulmonary disease, unspecified; F17.210 Nicotine dependence, cigarettes, uncomplicated; Z79.899 Other long term (current) drug therapy; Z82.49 Family history of ischemic heart disease and other diseases of the circulatory system

== ENCOUNTER 2019-11-24 11:11 | Emergency (ER) | payer OTHER, MEDICARE ==
[~2019-11-24] VITALS: Ht 167.6 cm; Wt 50.8 kg
[~2019-11-24 11:11] MED LIST changes: -VALIUM5 MG PO
[2019-11-24 12:51] LABS: ABSOLUTE NEUTROPHILS 5.8 thou/uL (1.4-8.2); EOSINOPHILS 0.7 % (0.0-3.0); HEMATOCRIT 34.2 % (37.0-47.0); HEMOGLOBIN 11.5 gm/dL (12.0-15.0); LYMPHOCYTES 16.1 % (24.0-44.0); MCH 33.4 pg (26.0-34.0); MCHC 33.7 g/dL (28.0-37.0); MCV 99.1 fL (80.0-100.0); MONOCYTES 6.4 % (1.0-8.0); PLATELET COUNT 191 thou/uL (150-400); POLYS 75.8 % (36.0-66.0); RBC 3.45 mil/uL (4.20-5.00); RDW 17.4 % (10.5-14.5); WBC 7.6 thou/uL (4.0-11.0)
[2019-11-24 13:12] LABS: CALCIUM 8.7 mg/dL (8.5-10.1); CREATININE 1.6 mg/dL (0.6-1.0); MAGNESIUM 1.6 mg/dL (1.8-2.4); POTASSIUM 5.1 mmol/L (3.5-5.1)
[2019-11-24 13:15] LABS: PROTIME 10.5 Seconds (9.3-11.4)
[2019-11-24 13:20] LABS: ALBUMIN 3.3 g/dL (3.4-5.0); DIRECT BILIRUBIN < 0.1 mg/dL (<0.1-0.2); SGOT 21 U/L (15-37); SGPT 16 U/L (30-65); TOTAL BILIRUBIN 0.4 mg/dL (0.2-1.0); TOTAL PROTEIN 6.7 g/dL (6.4-8.2)
[2019-11-24 14:00] LABS: URINE BILIRUBIN NEGATIVE (Negative); URINE BLOOD NEGATIVE (Negative); URINE CLARITY CLEAR; URINE COLOR YELLOW; URINE GLUCOSE-RANDOM* NEGATIVE (Negative); URINE KETONES NEGATIVE (Negative); URINE LEUKOCYTES-REFLEX NEGATIVE (Negative); URINE NITRITE-REFLEX NEGATIVE (Negative); URINE PROTEIN (DIPSTICK) NEGATIVE (Negative); URINE SPECIFIC GRAVITY 1.025 (1.005-1.035); URINE UROBILINOGEN 0.2 E.U./dl (0.2-1.0)
[2019-11-24 14:44] VITALS: BP 125/59
--- NOTE | 2019-11-25 11:35 | EKG ---
[facility] [place] [address] ELECTROCARDIOGRAM REPORT Name: YOJANA PRESSLEY [id number] Admission: 11/24/19 Attend Phys: Discharge: 11/24/19 Date of : 32 Report #: [id number] THIS REPORT FOR: cc: Camryn Gutierrez Beth RNP Couchonnal, Luis F. MD ~ THIS REPORT FOR: //name// [facility] ED Test Date: 2019-11-24 Test Time: 12:33:17 Pat Name: YOJANA PRESSLEY Department: Room: Gender: F Acid Strength Inspector: LISBETH : 1930 Requested By: Dany Tidwell Order Number: [id number] : Matthew Santiago Measurements Intervals [place] Rate: 170 P: [place]: QRS: 63 QRSD: 112 T: 221 QT: 261 QTc: 439 Interpretive Statements Atrial fibrillation with rapid V-rate Paired ventricular premature complexes Borderline intraventricular conduction delay Borderline low voltage, extremity leads Repolarization abnormality, prob rate related Artifact in lead(s) II,aVF,V1,V2,V3,V4,V5,V6 Compared to ECG 11/04/2019 07:56:47 Ventricular premature complex(es) now present Early repolarization now present ST (T wave) deviation no longer present Electronically Signed On 11-25-2019 11:35:23 CDT by Matthew Santiago [email or web address] <ELECTRONICALLY SIGNED> By: Matthew Santiago MD 11/25/19 1135 1233 1233 Matthew Santiago MD /EPI
--- NOTE | 2019-11-25 11:36 | EKG ---
[facility] [place] [address] ELECTROCARDIOGRAM REPORT Name: YOJANA PRESSLEY [id number] Admission: 11/24/19 Attend Phys: Discharge: 11/24/19 Date of : 32 Report #: [id number] THIS REPORT FOR: cc: Camryn Gutierrez Beth RNP Couchonnal, Luis F. MD ~ THIS REPORT FOR: //name// [facility] ED Test Date: 2019-11-24 Test Time: 13:41:42 Pat Name: YOJANA PRESSLEY Department: Room: Gender: F Pinion And Wheel Truer: LISBETH : 1930 Requested By: Kole Hernandez Order Number: [id number] : Matthew Santiago Measurements Intervals [place] Rate: 91 P: [place]: QRS: 73 QRSD: 84 T: 29 QT: 455 QTc: 560 Interpretive Statements Atrial fibrillation Low voltage, extremity leads Nonspecific repol abnormality, diffuse leads Prolonged QT interval Compared to ECG 11/24/2019 12:33:17 Prolonged QT interval now present Ventricular premature complex(es) no longer present Electronically Signed On 11-25-2019 11:36:24 CDT by Matthew Santiago [email or web address] <ELECTRONICALLY SIGNED> By: Matthew Santiago MD 11/25/19 1136 1341 1341 Matthew Santiago MD /EPI
== END 2019-11-24 14:45 | disposition home or self-care (01) ==
LOC: ER 11:11
PROVIDERS: Emergency Medicine; Physician Assistant
DX: R53.83 Other fatigue (principal); R41.3 Other amnesia; R41.0 Disorientation, unspecified; R22.42 Localized swelling, mass and lump, left lower limb; I25.10 Atherosclerotic heart disease of native coronary artery without angina pectoris; E78.5 Hyperlipidemia, unspecified; I10 Essential (primary) hypertension; I48.91 Unspecified atrial fibrillation; J44.9 Chronic obstructive pulmonary disease, unspecified; Z88.0 Allergy status to penicillin; Z88.5 Allergy status to narcotic agent; Z88.2 Allergy status to sulfonamides; Z88.7 Allergy status to serum and vaccine; Z79.899 Other long term (current) drug therapy; Z90.710 Acquired absence of both cervix and uterus; Z85.828 Personal history of other malignant neoplasm of skin

== ENCOUNTER 2019-11-26 12:25 | Emergency (ER) | payer OTHER, MEDICARE ==
[~2019-11-26] VITALS: Ht 167.6 cm; Wt 50.8 kg
[2019-11-26 13:23] LABS: ABSOLUTE NEUTROPHILS 6.5 thou/uL (1.4-8.2); BASOPHILS 1.1 % (0.0-2.0); EOSINOPHILS 0.7 % (0.0-3.0); HEMATOCRIT 34.1 % (37.0-47.0); HEMOGLOBIN 11.5 gm/dL (12.0-15.0); LYMPHOCYTES 15.1 % (24.0-44.0); MCH 33.2 pg (26.0-34.0); MCHC 33.8 g/dL (28.0-37.0); MCV 98.3 fL (80.0-100.0); MONOCYTES 5.3 % (1.0-8.0); PLATELET COUNT 178 thou/uL (150-400); POLYS 77.8 % (36.0-66.0); RBC 3.47 mil/uL (4.20-5.00); RDW 16.5 % (10.5-14.5); WBC 8.3 thou/uL (4.0-11.0)
[2019-11-26 13:31] LABS: URINE BILIRUBIN NEGATIVE (Negative); URINE BLOOD TRACE (Negative); URINE CLARITY CLEAR; URINE COLOR YELLOW; URINE GLUCOSE-RANDOM* NEGATIVE (Negative); URINE KETONES NEGATIVE (Negative); URINE LEUKOCYTES-REFLEX NEGATIVE (Negative); URINE NITRITE-REFLEX NEGATIVE (Negative); URINE PROTEIN (DIPSTICK) NEGATIVE (Negative); URINE SPECIFIC GRAVITY 1.025 (1.005-1.035); URINE UROBILINOGEN 0.2 E.U./dl (0.2-1.0)
[2019-11-26 13:35] LABS: APTT 28.3 Seconds (24.5-32.8); PROTIME 10.6 Seconds (9.3-11.4)
[2019-11-26 13:39] LABS: ALBUMIN 3.1 g/dL (3.4-5.0); CALCIUM 8.3 mg/dL (8.5-10.1); CREATININE 1.6 mg/dL (0.6-1.0); POTASSIUM 4.9 mmol/L (3.5-5.1); TOTAL BILIRUBIN 0.4 mg/dL (0.2-1.0); TOTAL PROTEIN 6.3 g/dL (6.4-8.2)
[2019-11-26] MEDS ORDERED: VALIUM5 MG PO (14:16)
[2019-11-26 14:30] VITALS: BP 144/78
== END 2019-11-26 14:30 | disposition home or self-care (01) ==
LOC: ER 12:25
PROVIDERS: Emergency Medicine; Physician Assistant
DX: M43.6 Torticollis (principal); E86.9 Volume depletion, unspecified; K92.1 Melena; I25.10 Atherosclerotic heart disease of native coronary artery without angina pectoris; E78.5 Hyperlipidemia, unspecified; I73.9 Peripheral vascular disease, unspecified; I10 Essential (primary) hypertension; I48.91 Unspecified atrial fibrillation; J44.9 Chronic obstructive pulmonary disease, unspecified; Z90.711 Acquired absence of uterus with remaining cervical stump; Z90.89 Acquired absence of other organs; Z79.899 Other long term (current) drug therapy; Z88.0 Allergy status to penicillin; Z88.5 Allergy status to narcotic agent; Z88.2 Allergy status to sulfonamides; Z88.7 Allergy status to serum and vaccine

== ENCOUNTER 2019-12-24 10:08 | Inpatient (IN) | payer OTHER, MEDICARE ==
[~2019-12-24] VITALS: Ht 165.1 cm; Wt 50.8 kg
[~2019-12-24 10:08] MED LIST changes: +VALIUM5 MG PO
[2019-12-24 10:10] VITALS: BP 139/92
[2019-12-24 11:01] LABS: ABSOLUTE NEUTROPHILS 8.6 thou/uL (1.4-8.2); BASOPHILS 0.4 % (0.0-2.0); HEMATOCRIT 42.6 % (37.0-47.0); HEMOGLOBIN 13.9 gm/dL (12.0-15.0); LYMPHOCYTES 8.1 % (24.0-44.0); MCHC 32.6 g/dL (28.0-37.0); MCV 98.2 fL (80.0-100.0); MONOCYTES 6.5 % (1.0-8.0); PLATELET COUNT 172 thou/uL (150-400); RBC 4.33 mil/uL (4.20-5.00); RDW 14.2 % (10.5-14.5); WBC 10.1 thou/uL (4.0-11.0)
[2019-12-24 11:11] LABS: ANION GAP 12 mmol/L (7-16); BUN 14 mg/dL (7-18); CALCIUM 9.5 mg/dL (8.5-10.1); CHLORIDE 99 mmol/L (98-107); CO2 26 mmol/L (21-32); CREATININE 1.3 mg/dL (0.6-1.0); GLUCOSE 121 mg/dL (74-106); POTASSIUM 4.6 mmol/L (3.5-5.1); SODIUM 137 mmol/L (136-145)
[2019-12-24 11:20] LABS: ALBUMIN 3.5 g/dL (3.4-5.0); SGOT 32 U/L (15-37); SGPT 16 U/L (30-65); TOTAL BILIRUBIN 0.8 mg/dL (0.2-1.0); TOTAL PROTEIN 6.8 g/dL (6.4-8.2); TROPONIN-I <0.06 ng/mL (<0.06)
[2019-12-24 11:21] LABS: URINE BILIRUBIN NEGATIVE (Negative); URINE BLOOD TRACE (Negative); URINE CLARITY CLEAR; URINE COLOR YELLOW; URINE GLUCOSE-RANDOM* NEGATIVE (Negative); URINE KETONES TRACE (Negative); URINE LEUKOCYTES-REFLEX NEGATIVE (Negative); URINE NITRITE-REFLEX NEGATIVE (Negative); URINE PROTEIN (DIPSTICK) NEGATIVE (Negative); URINE SPECIFIC GRAVITY 1.025 (1.005-1.035); URINE UROBILINOGEN 0.2 E.U./dl (0.2-1.0)
[2019-12-24 11:29] LABS: AMP/METHAMP Negative (Negative); BARBITURATES Negative (Negative); BENZODIAZEPINES POSITIVE (Negative); COCAINE Negative (Negative); METHADONE Negative (Negative); OPIATES Negative (Negative); PCP Negative (Negative)
[2019-12-24 14:59] LABS: ALBUMIN 0.9 g/dL (3.4-5.0); TOTAL PROTEIN 2.2 g/dL (6.4-8.2)
[2019-12-24 15:38] LABS: TSH 0.392 uIU/mL (0.358-3.740)
[2019-12-24 17:05] VITALS: BP 149/86
[2019-12-24 17:10] VITALS: BP 153/82
[2019-12-24 17:22] VITALS: BP 157/99
[2019-12-24 19:06] VITALS: BP 152/98
--- NOTE | 2019-12-24 19:20 | NUR ---
PT ADMITED FROM ER. ADMISSION HX AND ASSESSMENT COMPLETED WITH THE HELP FROM THE DAUGHTER. PT ALERT TO SELF. ATTEMPTED NUMEROUS TIME TO GET OUT OF THE BED WITHOUT CALLING. SITTER AT THE BEDSIDE. REPORT GIVEN TO THE [facility] NURSE.
[2019-12-24] MEDS ORDERED: FAMOTIDINE 20 M20 MG PO (21:17)
[2019-12-24] MEDS ORDERED: FERROUS SULFAT325 MG PO (21:17)
[2019-12-24] MEDS ORDERED: PROTONIX40 M2 PO (21:18)
[2019-12-24] MEDS ORDERED: IRBESARTAN300 MG PO (21:18)
[2019-12-24] MEDS ORDERED: SPIRONOLACTONE25 MG PO (21:19)
[2019-12-25] VITALS (7 sets, daily range): BP systolic 106–166; BP diastolic 70–95
--- NOTE | 2019-12-25 05:03 | NUR ---
ASSUME CARE 1900. VITALS STABLE. PT PLEASANTLY CONFUSED. NO PAIN NOTED. MODERATE TOLERANCE TO ACTIVITY. ASSESSMENT CHARTED. AFIB NOTED ON MONITOR WITH HR IN THE LOW 100s-120s. NO DISTRESS NOTED. PT RESTLESS AND IMPULSIVE. PLAN IS TO CONTINUE TO MONITOR LEVEL OF CONSCIOUNESS. WILL FOLLOW WIHT POC
[2019-12-25 05:13] LABS: HEMOGLOBIN 13.7 gm/dL (12.0-15.0); MCH 32.2 pg (26.0-34.0); MCHC 32.7 g/dL (28.0-37.0); MCV 98.5 fL (80.0-100.0); RBC 4.26 mil/uL (4.20-5.00); RDW 14.2 % (10.5-14.5)
[2019-12-25 05:26] LABS: CALCIUM 9.2 mg/dL (8.5-10.1); CREATININE 1.1 mg/dL (0.6-1.0); MAGNESIUM 1.4 mg/dL (1.8-2.4); POTASSIUM 4.5 mmol/L (3.5-5.1)
--- NOTE | 2019-12-25 08:10 | EKG ---
[facility] [place] [address] ELECTROCARDIOGRAM REPORT Name: YOJANA PRESSLEY Room #: 202-P ADM IN M.R.#: [id number] Admission: 12/24/19 Attend Phys: Jermaine Bonilla MD Discharge: Date of : 32 Report #: [id number] THIS REPORT FOR: cc: Camryn Gutierrez Beth RNP Couchonnal, Luis F. MD ~ THIS REPORT FOR: //name// [facility] ED Test Date: 2019-12-24 Test Time: 11:22:42 Pat Name: YOJANA PRESSLEY Department: Room: 202 Gender: F Scrip Clerk: lena : 1930 Requested By: Vahid Miller Order Number: [id number] MD: Matthew Santiago Measurements Intervals [place] Rate: 105 P: NE: QRS: 103 QRSD: 77 T: 257 QT: 355 QTc: 470 Interpretive Statements Atrial fibrillation Ventricular premature complex Right axis deviation Low voltage, extremity leads Artifact in lead(s) I,II,III,aVR,aVL,aVF,V2,V4,V6 Electronically Signed On 12-25-2019 8:10:24 CDT by Matthew Santiago [email or web address] <ELECTRONICALLY SIGNED> By: Matthew Santiago MD 12/25/19 0810 112 112 Matthew Santiago MD /EPI
--- NOTE | 2019-12-25 10:43 | 2DMMODE ---
[facility] [place] [address] 2 D/M-MODE ECHOCARDIOGRAM Name: YOJANA PRESSLEY Room #: 202-P ADM IN M.R.#: [id number] Admission: 12/24/19 Attend Phys: Jermaine Bonilla MD Discharge: Date of : 32 Report #: [id number] THIS REPORT FOR: cc: Camryn Gutierrez Beth RNP Park, Jin S. MD ~ APPROVED REPORT Study performed: 12/25/2019 09:04:06 EXAM: Comprehensive 2D, Doppler, and color-flow Echocardiogram Patient Location: Bedside Room #: 202 Status: routine BSA: 1.54 HR: 108 bpm BP: 147/80 mmHg Rhythm: Atrial Fibrillation Other Information Study Quality: Good Indications COPD Atrial Fibrillation CAD Syncope Hypertension/HDD 2D Dimensions IVSd: 8.68 (7-11mm) LVOT Diam: 18.84 (18-24mm) LVDd: 44.08 mm PWd: 9.23 (7-11mm) Ascending Ao: 26.31 (22-36mm) LVDs: 27.55 (25-40mm) Aortic Root: 28.02 mm IVC: 24.00 mm Volumes Left Atrial Volume (Systole) Single Plane 4CH: 53.65 mL Single Plane 2CH: 59.53 mL LA ESV Index: 40.00 mL/m2 Aortic Valve AoV Peak Red.: 1.10 m/s AO Peak Gr.: 4.86 mmHg LVOT Max P.46 mmHg [facility] [address] [place] [address] 2 D/M-MODE ECHOCARDIOGRAM Name: HUANYOJANA Vaughn Room #: 202-P ADM IN M.R.#: [id number] Admission: 12/24/19 Attend Phys: Jermaine Bonilla, Discharge: Date of : 32 Report #: [id number] LVOT Max V: 0.60 m/s CHIDI Vmax: 1.52 cm2 Pulmonary Valve PV Peak Red.: 0.85 m/s PV Peak Gr.: 2.90 mmHg Tricuspid Valve TR Peak Red.: 2.90 m/s TR Peak Gr.: 33.78 mmHg PA Pressure: 44.00 mmHg Left Ventricle The left ventricle is normal size. There is normal LV segmental wall motion. There is normal left ventricular wall thickness. The left ventricular systolic function is normal. The left ventricular ejection fraction is within the normal range. LVEF is 65%. This study is not technically sufficient to allow evaluation of the LV diastolic function due to atrial fibrillation. Right Ventricle The right ventricle is normal size. The right ventricular systolic function is normal. Atria Left atrium is dilated. Right atrium is dilated. Aortic Valve Aortic valve is calcified. No aortic regurgitation is present. Mild aortic stenosis. Mitral Valve Mitral valve leaflets are thickened. Mild mitral regurgitation. No evidence of mitral valve stenosis. Tricuspid Valve The tricuspid valve is normal in structure. There is moderate tricuspid regurgitation. Estimated PAP 44 mmHg. There is moderate pulmonary hypertension. Pulmonic Valve The pulmonary valve is normal in structure. Trace pulmonic regurgitation. Great Vessels The aortic root is normal in size. IVC is dilated and collapses <50% with inspiration. [facility] [address] [place] [address] 2 D/M-MODE ECHOCARDIOGRAM Name: YOJANA PRESSLEY Room #: 202-P [facility] IN M.R.#: [id number] Admission: 12/24/19 Attend Phys: Jermaine Bonilla, Discharge: Date of : 32 Report #: [id number] Pericardium Small pericardial effusion. <Conclusion> The left ventricle is normal size. There is normal left ventricular wall thickness. The left ventricular systolic function is normal. The right ventricle is normal size. Left atrium is dilated. Right atrium is dilated. Mild aortic stenosis. Mild mitral regurgitation. There is moderate tricuspid regurgitation. Estimated PAP 44 mmHg. <ELECTRONICALLY SIGNED> By: Prosper Vasquez MD 12/25/19 1043 1043 104 Prosper Vasquez MD /INF
[2019-12-25] MEDS ORDERED: ELIQUIS2.5 MG PO (11:18)
--- NOTE | 2019-12-25 14:32 | NUR ---
SITTER IN ROOM WITH PT, DAUGHTER NOW AT SIDE, UPDATED ON POC, DR RIOS TO COME SEE DTR, PT UP TO CHAIR, TOOK MEDS CRUSHED WITH APPLE SAUCE, NICOTINE PATCH TO RIGHT SHOULDER, ALTOFF IN TO EVALUATE R LEG WOUND, PT UP TO CHAIR WITH PT. HAD BM IN BSC, BACK TO BED, CURRENTLY ASLEEP, PT IS 2X MAX ASSIST SHE IS VERY WEAK, AWAITING EEG AND MRI
[2019-12-25 15:56] LABS: ALBUMIN 2.9 g/dL (3.4-5.0); CALCIUM 8.8 mg/dL (8.5-10.1); MAGNESIUM 3.1 mg/dL (1.8-2.4); POTASSIUM 3.9 mmol/L (3.5-5.1); TOTAL BILIRUBIN 0.8 mg/dL (0.2-1.0)
[2019-12-26] VITALS (7 sets, daily range): BP systolic 124–165; BP diastolic 61–97
--- NOTE | 2019-12-26 03:39 | NUR ---
ASSUMED CARE 1900. PT AO X2. VITALS STABLE. PT CONFUSED. IMPULSIVE AND PULLING OUT MEDICAL EQUIPMENT. SITTER IN THE ROOM. NO APPARENT PAIN. GENERAL BRUISES ON THE UPPER EXTREMITIES. PT REFUSED HER EVENING MEDICATIONS. INCONTINENT OF BOTH BLADDER AND BOWEL. WILL CONTINUE TO MONITOR AND FOLLOW POC.
[2019-12-26 05:03] LABS: HEMATOCRIT 40.6 % (37.0-47.0); HEMOGLOBIN 13.3 gm/dL (12.0-15.0); MCH 31.6 pg (26.0-34.0); MCHC 32.7 g/dL (28.0-37.0); MCV 96.5 fL (80.0-100.0); RBC 4.21 mil/uL (4.20-5.00); RDW 13.9 % (10.5-14.5); WBC 11.7 thou/uL (4.0-11.0)
[2019-12-26 05:19] LABS: CALCIUM 8.7 mg/dL (8.5-10.1); CREATININE 0.9 mg/dL (0.6-1.0); MAGNESIUM 2.2 mg/dL (1.8-2.4); POTASSIUM 3.3 mmol/L (3.5-5.1)
--- NOTE | 2019-12-26 15:33 | NUR ---
INITIAL ASSESSMENT: SW reviewed chart and spoke with nursing and attending physician. Pt was admitted from home due to possible syncopal episode. Pt was found down on the floor by her daughter. Pt with hx of A-fib/HTN and sees Dr. Joy as an outpatient. Neuro and wound care consulted. SW discussed case with [facility] rehab director, who states they are able to accept pt when medically stable. SW met with pt and dtr, Bessie, at bedside. Introduced role of SW. Pt was sleeping during time of SW visit. Prior to admission, pt was living at home. Family is in the process of moving pt in with her dtr, Denise. Prior to admission, pt was independent with ADLs. Pt does have a cane and walker. Pt has been to [facility] in the past and has used [facility] . Pt's dtr states that pt has been seeing Camryn Grant at [facility] for primary care. Pt's dtr confirms plan for pt to d/c to [facility]. KEITH updated attending physician. SW is following to assist as needed with discharge planning.
--- NOTE | 2019-12-26 17:43 | NUR ---
ASSUMED CARE OF PT AT SHIFT CHANGE. ASSESSMENTS CHARTED. MEDS GIVEN PER JUN. PT ALERT TO SELF AND PLACE. PPN INFUSING, ON RA. DAUGHTER AT BEDSIDE MOST OF DAY. PT BECAME VERY SOMNOLENT, WITH VERY LITTLE AROUSAL. DAUGHTER WAS CONCERNED WITH CHANGE IN BEHAVIOR, NEURO WAS PAGED, DR SANON CAME TO SEE HER. AT THAT TIME SHE WAS AWAKE AND SITTING UP. ORDERED CT CANCELLED. PT DIET CHANGED TO PUREED D/T FOOD POCKETING. INTAKE IS STILL LOW. WILL CONTINUE TO MONITOR AND FOLLOW POC.
[2019-12-27 00:24] VITALS: BP 165/108
--- NOTE | 2019-12-27 04:02 | NUR ---
ASSUMED CARE 1900. PT LETHERGIC. UNABLE TO MAKE NEEDS KNOWN. CT OF SPINE HAD BEEN ORDERED. CT COMPLETED. REMAINS AFIB ON THE MONITOR, HR IS 100s DESPITE SCHEDULED METOPROLOL. PT MORE TIRED AND DROWSY THROGHT THE NIGHT. THIS WAS EVIDENT YESTERDAY DURING THE DAY WHERE THE PT DRIFTS BACK TO SLEEP IMMEDIATELY. DAUGHTER OYJANA UPDATED ABOUT PTS CONDITION. PT INCONTINENT OF BOTH BLADDER AND BOWEL.
[2019-12-27 05:25] VITALS: BP 142/61
[2019-12-27 05:31] LABS: HEMATOCRIT 37.2 % (37.0-47.0); HEMOGLOBIN 12.3 gm/dL (12.0-15.0); MCH 32.1 pg (26.0-34.0); MCV 97.1 fL (80.0-100.0); RBC 3.83 mil/uL (4.20-5.00); WBC 8.7 thou/uL (4.0-11.0)
[2019-12-27 05:41] LABS: CALCIUM 8.6 mg/dL (8.5-10.1); CREATININE 1.1 mg/dL (0.6-1.0); MAGNESIUM 1.8 mg/dL (1.8-2.4); POTASSIUM 3.8 mmol/L (3.5-5.1)
[2019-12-27 08:27] VITALS: BP 140/86
[2019-12-27] MEDS ORDERED: NICOTINE TRANSD14 M1 TRANSDERM (10:09)
[2019-12-27] MEDS ORDERED: CARDIZEM60 MG PO (10:10)
[2019-12-27] MEDS ORDERED: VITAMIN B-121000 MC2 PO (10:12)
[2019-12-27 12:12] VITALS: BP 134/70
[2019-12-27 15:00] VITALS: BP 134/70
--- NOTE | 2019-12-27 15:47 | NUR ---
PT CARE ASSUMED APPROX 1000. ASSESSMENTS CHARTED. PT DENIES PAINA ND SOA. VSS. UP WITH MIN ASSIST. DAUGHTER AT BEDSIDE. GIVEN CLINICAL UPDATE AND REPORTS THAT SHE UNDERSTANDS POC. REPORT CALLED TO REHAB NURSE THAT ALSO DENIES QUESTIONS OR CONCERNS REGARDING POC. TELE OFF. TRANSPORTING PT AT THIS TIME TO [facility]. NO DISTRESS NOTED.
--- NOTE | 2019-12-27 17:07 | NUR ---
spoke with dtr and patient plan for dc to [facility] today. Dtr questions some letter to support patient breaking her lease as she can no longer live at home. Left message with [place] malcolm.
--- NOTE | 2019-12-28 10:38 | HC ---
[facility] [place] [address] CONSULTATION Name: YOJANA PRESSLEY Room #: 202-P [facility] IN M.R.#: [id number] Admission: 12/24/19 Attend Phys: Jermaine Bonilla MD Discharge: 12/27/19 Date of : 32 Report #: [id number] THIS REPORT FOR: cc: Camryn Gutierrez Beth RNP Khosla, Parveen K. MD ~ CC: Camryn Bonilla DATE OF SERVICE: 12/25/2019 HISTORY OF PRESENT ILLNESS: This is an 89-year-old female patient who lives by herself. She has a daughter who checks on her frequently. She goes to her house every day. The patient has another daughter who talks to her frequently. One of the daughters was there and found her unresponsive. She was last seen somewhere between 12-20 hours prior to being seen that time. She had a stroke in the past. That stroke has affected the speech. She made a partial recovery from that and she was functional before this happened. She was losing some memory, but as mentioned above, she was functioning reasonably well. REVIEW OF SYSTEMS: Positive for multiple problems. She has evidence of vascular disease. She has a history of hyperkalemia. She has a prior history of stroke. She had a cardiac catheterization. She has a history of atrial fibrillation. A 14-point review of system is carried out. She smokes and she has a pretty significant vascular disease. PAST MEDICAL HISTORY: Positive for atrial fibrillation and stroke. FAMILY HISTORY: Unremarkable. SOCIAL HISTORY: She smokes. PHYSICAL EXAMINATION: The patient's examination was limited. She is sleepy. She wakes up. Her speech is not understandable, but she can follow simple commands at least intermittently, but falls back to sleep reasonably fast. Complete neurological examination was attempted, but was not possible. It looks like she can move both sides. She has bandages on the legs. I could not do the position sense. She is not awake enough. Blood pressure is 106/70, respirations 18, pulse 86, temperature is 97.6. LABORATORY DATA: White count is 11. She did have a carotid Doppler done, which showed no hemodynamically significant stenosis. IMPRESSION: This patient's aphasia appeared to be worse. It is possible that when she passed out, she aggravated her previous stroke, especially [place]. I discussed the options with the family. They wanted to proceed with MRI and we [facility] [address] [place] [address] CONSULTATION Name: YOJANA PRESSLEY Room #: 202-P [facility] IN M.R.#: [id number] Admission: 12/24/19 Attend Phys: Jermaine Bonilla MD Discharge: 12/27/19 Date of : 32 Report #: [id number] will do that to look for any extension of the CVA. I will also get an EEG done. She is already on anticoagulation. Limited thing can be done until we find some overriding cause in the patient's MRI or EEG. We will evaluate that. Thank you very much for this referral and if you have any question, please feel free to contact me. More than 30 minutes of time was spent taking care of this patient today and majority of that time was spent counseling and coordinating and reviewing her extensive records. <ELECTRONICALLY SIGNED> By: Ho Pérez MD 12/28/19 1038 1513 15 Ho Pérez MD /nt
--- NOTE | 2019-12-28 10:39 | EEG ---
[facility] [place] [address] ELECTROENCEPHALOGRAM Name: YOJAAN PRESSLEY Room #: 202-P [facility] IN M.R.#: [id number] Admission: 12/24/19 Attend Phys: Jermaine Bonilla MD Discharge: 12/27/19 Date of : 32 Report #: [id number] THIS REPORT FOR: //name// CC: Camryn Heardjuan j Bonilla DATE OF SERVICE: 12/25/2019 The patient is being evaluated for altered mental status. EEG was done by placing the electrode by standard 10-20 system of electrode placement. Both referential and sequential montages were used for recording. Background activity in this patient's EEG is about 7 Hz and 30 microvolt. This is a poorly formed background activity. The patient is somnolent throughout the record. Photic stimulation is unremarkable. IMPRESSION: This is a disorganized and poorly formed background activity. There is a nonspecific finding, which can occur with encephalopathy, effect of psychotropic medication, dementia, etc. Clinical correlation is recommended. <ELECTRONICALLY SIGNED> By: Ho Pérez MD 12/28/19 1039 11 24 Ho Pérez MD /nt
--- NOTE | 2019-12-29 19:16 | HC ---
[facility] [place] [address] CONSULTATION Name: YOJANA PRESSLEY Room #: 202-P [facility] IN M.R.#: [id number] Admission: 12/24/19 Attend Phys: Jermaine Bonilla MD Discharge: 12/27/19 Date of : 32 Report #: [id number] THIS REPORT FOR: cc: Camryn Gutierrez Beth RNP Althoff, Jeffrey R. MD ~ CC: Camryn Bonilla DATE OF SERVICE: 12/25/2019 CHIEF COMPLAINT: Traumatic wound to the lower extremity. HISTORY OF PRESENT ILLNESS: This is an 89-year-old female patient, who has a history of hypertension, atrial fibrillation and COPD, who was admitted to the hospital after having a fall while getting up to go to the bathroom. She was apparently found by her daughter lying on the floor. She woke up a bit confused. She is noted to have a traumatic wound to her leg and I have been asked to see her with regard to wound care. PAST MEDICAL AND SURGICAL HISTORY: Positive for coronary artery disease, hyperlipidemia, peripheral arterial disease, hypertension, atrial fibrillation, carotid artery disease, COPD, previous hysterectomy. SOCIAL HISTORY: The patient smokes cigarettes, 5 cigarettes per day. No alcohol use, no drug use. FAMILY HISTORY: Noncontributory. REVIEW OF SYSTEMS: Somewhat limited by the patient's confusion. CONSTITUTIONAL: The patient denies fever, chills or weight loss. NEUROLOGICAL: The patient denies focal weakness. ENT: The patient denies earache, nasal drainage, sore throat. CARDIOVASCULAR: The patient denies chest pain, palpitations or diaphoresis. PULMONARY: The patient denies cough or shortness of breath. GASTROINTESTINAL: The patient denies nausea, vomiting, diarrhea or abdominal pain. ORTHOPEDIC: The patient notes the wound on her leg. Other systems are either unobtainable or negative. PHYSICAL EXAMINATION: VITAL SIGNS: At this time includes temperature 98.1, pulse 109, respiratory rate 18, blood pressure 153/84. GENERAL: This is a somewhat chronically ill-appearing female patient who appears to be in minimal distress. HEENT: Head normocephalic. Nose and throat clear. [address] [address] CONSULTATION Name: YOJANA PRESSLEY Room #: 202-P DIS IN M.R.#: [id number] Admission: 12/24/19 Attend Phys: Jermaine Bonilla MD Discharge: 12/27/19 Date of : 32 Report #: [id number] NECK: Supple. LUNGS: Diminished. HEART: Irregularly irregular. ABDOMEN: Soft, nontender. EXTREMITIES: Demonstrates what appears to be a traumatic wound to the right pretibial region. It appears that the skin has been rolled. I have unrolled the edges and have trimmed the necrotic tissue on the distal portion of the skin flap. NEUROLOGIC: The patient is alert, does move all 4 extremities. CLINICAL IMPRESSION: 1. Traumatic wound to the right pretibial region, status post fall at home. 2. Syncopal event with confusion. 3. Atrial fibrillation. 4. History of tobacco use. 5. Severe protein-calorie malnutrition. RECOMMENDATIONS: At this point in time, skin edges were reapproximated at the bedside. We will place Xeroform, ABD, Kerlix and tape. We will recommend this be changed on a daily basis. Cardiology and Neurology are following her regarding the syncopal event and her atrial fibrillation. She will need ongoing nutritional support and continuation of current medications, would recommend utilizing PT, OT as she is able. I appreciate being asked to see her in consultation. <ELECTRONICALLY SIGNED> By: Jason Pond MD 12/29/19 1916 [id number] [id number] Jason Pond MD /nt
== END 2019-12-27 15:49 | DRG 308 ==
LOC: ER 10:08 → EROBS 13:45 → 2N 13:45
PROVIDERS: Internal Medicine; Nurse Practitioner; ADMIT Internal Medicine; ATTEND Internal Medicine
DX: I48.21 Permanent atrial fibrillation (principal); E43 Unspecified severe protein-calorie malnutrition; R47.01 Aphasia; G93.40 Encephalopathy, unspecified; D68.59 Other primary thrombophilia; N17.9 Acute kidney failure, unspecified; Z68.1 Body mass index [BMI] 19.9 or less, adult; J44.9 Chronic obstructive pulmonary disease, unspecified; I25.10 Atherosclerotic heart disease of native coronary artery without angina pectoris; E78.5 Hyperlipidemia, unspecified; I10 Essential (primary) hypertension; I73.9 Peripheral vascular disease, unspecified; S05.11XA Contusion of eyeball and orbital tissues, right eye, initial encounter; W18.39XA Other fall on same level, initial encounter; Z88.8 Allergy status to other drugs, medicaments and biological substances; Z88.1 Allergy status to other antibiotic agents; Z88.5 Allergy status to narcotic agent; Z90.49 Acquired absence of other specified parts of digestive tract; Z85.828 Personal history of other malignant neoplasm of skin; Z88.0 Allergy status to penicillin; Z88.2 Allergy status to sulfonamides; Z88.7 Allergy status to serum and vaccine; Z79.899 Other long term (current) drug therapy; Z90.710 Acquired absence of both cervix and uterus; Y93.89 Activity, other specified; Y92.098 Other place in other non-institutional residence as the place of occurrence of the external cause; Y99.8 Other external cause status; F17.210 Nicotine dependence, cigarettes, uncomplicated; Z66 Do not resuscitate; E78.00 Pure hypercholesterolemia, unspecified; I65.29 Occlusion and stenosis of unspecified carotid artery; E83.42 Hypomagnesemia; S80.921A Unspecified superficial injury of right lower leg, initial encounter; R63.4 Abnormal weight loss; N39.46 Mixed incontinence; K21.9 Gastro-esophageal reflux disease without esophagitis; E53.8 Deficiency of other specified B group vitamins; M81.0 Age-related osteoporosis without current pathological fracture; F19.90 Other psychoactive substance use, unspecified, uncomplicated; Z86.73 Personal history of transient ischemic attack (TIA), and cerebral infarction without residual deficits; E87.6 Hypokalemia; I08.3 Combined rheumatic disorders of mitral, aortic and tricuspid valves
CPT/HCPCS: 10081

== ENCOUNTER 2019-12-27 12:29 | Inpatient (IN) | payer OTHER, MEDICARE ==
[~2019-12-27] VITALS: Ht 165.1 cm; Wt 46.4 kg
--- NOTE | ~2019-12-27 | PLAN ---
[facility] [place] [address] REHAB UNIT PLAN OF CARE Name: YOJANA PRESSLEY Room #: 513-P ADM IN M.R.#: [id number] Admission: 12/27/19 Attend Phys: Lavon Tejeda MD Discharge: Date of : 32 Report #: [id number] THIS REPORT FOR: //name// CC: Camryn Tejeda DATE OF SERVICE: 12/29/2019 SUBJECTIVE: The patient is seen back today in followup. She was in no distress. Last recorded temperature 97.9, pulse 82, respirations 16, blood pressure 130/55. She is alert, pleasant. She has been working in therapies with transfers, min assist, gait contact guard 200 feet with a four-wheeled walker. In occupational therapy, lower body dressing is standby assistance. In speech therapy, she is on a mechanical soft, thin liquid diet. As far as language. She does have severe memory and severe cognitive deficits. IMPRESSION: An 89-year-old white female with the following problem list: 1. Toxic metabolic encephalopathy. 2. Closed head injury, status post fall. She has some facial abrasions that are healing. 3. Syncopal event. 4. Atrial fibrillation with rapid ventricular rate, now controlled. 5. History of left lacunar infarct. 6. Peripheral arterial disease with coronary artery disease. 7. Protein-calorie malnutrition. 8. Right lower extremity leg wound, which is dressed. 9. Mild acute renal insufficiency, which has improved/resolved. PLAN: The overall plan of care is based on the preadmission screen, post-admission physician evaluation and information garnered from therapy assessments. 1. Estimated length of stay probably at least 7-14 days pending progress. 2. Medical prognosis is reasonably good. 3. Anticipated interventions includes the interdisciplinary acute inpatient rehabilitation program. 4. Anticipated functional outcomes would be for the patient to improve as far as gait mobility with a walker and improve with ADLs plus hopefully with cognition, so that she can return back to the home setting. 5. Discharge destination is going to be back to the home setting. The plan is to have her move into her daughter's house. 6. Expected therapy by discipline includes PT, OT and speech 1 hour per day [address] [address] REHAB UNIT PLAN OF CARE Name: YOJANA PRESSLEY Room #: 513-P ADM IN .R.#: [id number] Admission: 12/27/19 Attend Phys: Lavon Tejeda MD Discharge: Date of : 32 Report #: [id number] each five days a week throughout the duration of the acute inpatient rehabilitation stay. By: [id number] Lavon Tejeda MD /nt
[~2019-12-27 12:29] MED LIST changes: +CARDIZEM60 MG PO; +FAMOTIDINE 20 M20 MG PO; +FERROUS SULFAT325 MG PO; +IRBESARTAN300 MG PO; +NICOTINE TRANSD14 M1 TRANSDERM; +PROTONIX40 M2 PO; +SPIRONOLACTONE25 MG PO; +VITAMIN B-121000 MC2 PO
[2019-12-27 16:15] VITALS: BP 138/66
--- NOTE | 2019-12-27 16:35 | NUR ---
PT ARRIVED AT 1555 FROM CCU. ALERT AND ORIENTED TO PERSON, PLACE AND SITUATION. FORGETFUL AND CONFUSED AT TIMES. VERY SLEEPY AND TIRED. DENIES PAIN. VITALS REMAIN STABLE. PT HAS BRUISING ON BUE AND BLE FROM FALL AND NOSE. REDNESS NOTED AROUND SACRAL AND GUNNER HEELS (PRAFO BOOTS ORDERED). PT UP WITH 1 MOD ASSIST, GB AND WALKER AND TOLERATED WELL. FREQ. VISUAL CHECKS. CALL LIGHT WITHIN REACH. FALL PRECAUTIONS IN PLACE
[2019-12-27 19:40] VITALS: BP 108/64
[2019-12-28 00:15] VITALS: BP 124/60
[2019-12-28 03:44] VITALS: BP 133/64
[2019-12-28 05:57] LABS: HEMATOCRIT 34.3 % (37.0-47.0); HEMOGLOBIN 11.5 gm/dL (12.0-15.0); MCH 32.5 pg (26.0-34.0); MCHC 33.6 g/dL (28.0-37.0); MCV 96.8 fL (80.0-100.0); RBC 3.54 mil/uL (4.20-5.00); WBC 8.3 thou/uL (4.0-11.0)
--- NOTE | 2019-12-28 06:01 | NUR ---
Pt was sleeping and seemed tired beginning of shift. Pt was able to wake up and take meds per emar. No bm noted this shift. Pt slept well this shift. Fall precaution in place. Will continue to monitor.
[2019-12-28 06:25] LABS: CALCIUM 8.6 mg/dL (8.5-10.1); CREATININE 1.1 mg/dL (0.6-1.0); MAGNESIUM 1.6 mg/dL (1.8-2.4); POTASSIUM 3.7 mmol/L (3.5-5.1)
[2019-12-28 07:35] VITALS: BP 129/75
--- NOTE | 2019-12-28 10:34 | NUR ---
chart review. pt in room in bed, goes by ac. cm cont to wear face mask and shield during visit. intro to cm, and dcp. she is a & o x 3 with some forgetfulness, pleasant and able to make her needs known. she report she lives in [facility] alone, across street from her granddaughter and kids. been to rehab before. has walker. manage own medication. no driving. cook and clean. going to move in with daughter when leave here per ac. agricultural appraiser was her for the anointing of sick and prays with her. will cont following as needed for dc needs.
[2019-12-28 13:37] VITALS: BP 96/43
--- NOTE | 2019-12-28 18:11 | NUR ---
ASSUMED CARES AT 0700. PT AWAKE, ALERT AND ORIENTED*4. FATIGUED AFTER THERAPY AND SLEEPY WHEN NOT IN THERAPY. DENIES PAIN. HR ELEVATED THIS AM, ALL OTHER VITALS REMAIN STABLE. LEFT FOOT CLEANED AND DRESSING CHANGED BY WOUNDCARE NURSE. PT CONTINUES TO HAVE BRUISING IN BUE AND BLE. ASPIRATION PRECAUTIONS MAINTAINED WITH ALL MEALS. PT UP WITH 1 MIN ASSIST, GB AND WALKER AND TOLERATED WELL. Q1H VISUAL CHECKS. CALL LIGHT WITHIN REACH. FALL PRECAUTIONS IN PLACE
[2019-12-28 19:33] VITALS: BP 134/73
--- NOTE | 2019-12-29 05:56 | NUR ---
Assumed pt care at 1900. A/OX3,forgetful and doesn't call out for help before getting OOB,frequent checks done on pt. VSS.Denies pain on assessment. Up with min assist to BSC. Continent of B&B. Dtr reported pt typically goes to sleep early when at home,if HS meds can be passed before 1999 if possible;will relay to oncoming nurse.Meds given in applesauce at HS as pt was already asleep by then,swallowed w/o problems. Fall precautions in place,will continue to monitor pt.
[2019-12-29 07:36] VITALS: BP 130/55
[2019-12-29 13:33] VITALS: BP 105/44
--- NOTE | 2019-12-29 15:39 | NUR ---
ASSUMED CARES AT 0700. PT AWAKE, ORIENTED TO PERSON AND PLACE, FORGETFUL. DENIES PAIN. HR LOW THIS AFTERNOON 45-55, CARDIZEM WITHHELD PER ORDER. ALL OTHER VITALS REMAIN STABLE. PT COUGHING/ ASPIRATING DURING BREAKFAST, ST NOTIFIED AND DIET DOWNGRADED TO PUREE UNTIL FURTHER EVALUATION WITH SPEECH. ASPIRATION PRECAUTIONS MAINTAINED WITH MEALS. WOUNDCARE TO RIGHT LE COMPLETED. PT IMPULSIVE *2. FREQUENT VISUAL CHECKS. CALL LIGHT WITHIN REACH. FALL PRECAUTIONS IN PLACE
[2019-12-29 18:37] VITALS: BP 145/95
--- NOTE | 2019-12-30 03:29 | NUR ---
assumed care approx 190 evening 12/28. pt lying in bed with head of bed elevated. pt dozing off and on. pt hard of hearing and impulsive getting out of bed to go to bathroom. pt took hs meds with applesauce tolerating well. pt appears to be sleeping soundly and close to nurses station. bed alarm on and call light in reach. will continue to monitor.
[2019-12-30 07:30] VITALS: BP 137/66
--- NOTE | 2019-12-30 13:52 | NUR ---
ASSUMED CARE AT 0700. PT IS ALERT TO SELF ONLY. CONFUSED AND IMPULSIVE WHEN TRYING TO USE THE BATHROOM. DENIES ANY PAIN. ATE MOST OF HER MEALS 50% AND TOOK HER MEDS WHOLE WITH THIN LIQUID WITHOUT ANY DIFFICULTY. EASILY REORIENTATED. WORKED WITH ST, PT AND OT TODAY. PROGRESSING TOWARDS GOAL, CONT TO MONITOR.
[2019-12-30 21:51] VITALS: BP 121/94
--- NOTE | 2019-12-31 01:33 | NUR ---
ASSUMED PT CARE AT AROUND 1915 HRS. PT IS ALERT TO SELF MOSTLY.PT IS IMPULSIVE.WALKS TO THE BATHROOM ,GAITBELT AND WALKER. SHE IS ALSO INCONTINENT OF URINE. DENIES PAIN. HAS BRUISING ALL OVER.WEAK APPEARING. NO COUGH OR SOA.ON SWALLOW PRECAUTIONS.AFEBRILE. FOAM DRSG TO R LEG WHERE THERE IS A SKIN TEAR.FALL PREC IN PLACE.
[2019-12-31 08:47] VITALS: BP 153/87
--- NOTE | 2019-12-31 10:00 | NUR ---
ASSUMED CARE AT 0700. PT IS [place], AWAKE AND IMPULSIVE AND DOES NOT REMEMBER TO USE CALL LIGHT. SHE IS A STANDBY ASSIST AND WALKED WITH STEADY GAIT. DENIES ANY PAIN. ATE 100% OF HER MEALS TODAY. HAD A SMALL BOWEL MOVEMENT. PT DID NOT VERBALIZE ANY CONCERNS AND USUALLY SMILES AND IS PLESANT AND COOPERATIVE. DAUGHTER WAS IN THE ROOM VISITING. NO CONCERNS. WILL CONT TO MONITOR.
[2019-12-31 19:45] VITALS: BP 87/61
--- NOTE | 2020-01-01 02:37 | NUR ---
ASSUMED CARE OF PT AT 1915 ON 12/31/19. PT IS A&OX3. IS ON ROOM AIR. DENIES PAIN. IS STABLE. IS UP WITH STANDBY ASSIST, JOY, AGUILAER WALKER. FALL PRECAUTIONS & HOURLY ROUNDING CONTINUED THIS SHIFT. LABS & VITALS REVIEWED. PT HAS SKIN TEAR ON RLE WITH DRSG C/D/I. PT HAS GENERALIZED BRUISING. PT IS CONTINENT & CALLS OUT APPROPRIATELY FOR THE BATHROOM. PT IS [place]. PT IS CURRENTLY SLEEPING. CALL LIGHT IS WITHIN REACH. WILL CONTINUE TO MONITOR.
[2020-01-01 08:15] VITALS: BP 119/71
--- NOTE | 2020-01-01 18:44 | NUR ---
ASSUMED CARE AT 1635. PT WAS UP IN THE DINING EATING HER DINNER. SHE SEEMS COMFORTABLE AND DENIES ANY PAIN. SHE ATE MORE THAN 50% OF HER MEAL. SHE IS ON AN AIR LOSS MATTRESS AND WILL NEED TO BE PUT ON FOAM BOOTS WHILE IN BED.
[2020-01-01 19:31] VITALS: BP 123/63
--- NOTE | 2020-01-01 23:48 | NUR ---
ASSUMED PT CARE AT AROUND 1915 HRS. PT OBSERVED IN BED. PT GETS IMPULSIVE. WALKED TO THE BATHROOM WITH ROLLER WALKER. PT GETS INCONTINENT. PRAFO BOOTS WHILE IN BED. PT DENIES PAIN, SOA OR CHESTPAIN.TAKES MEDS WHOLE WITH NO ISSUES. FALL PREC IN PLACE.
[2020-01-02 05:31] VITALS: BP 124/67
[2020-01-02 06:14] LABS: CALCIUM 8.6 mg/dL (8.5-10.1); MAGNESIUM 1.5 mg/dL (1.8-2.4); POTASSIUM 3.8 mmol/L (3.5-5.1)
[2020-01-02 08:00] VITALS: BP 114/53
[2020-01-02 09:38] LABS: ABSOLUTE NEUTROPHILS 5.5 thou/uL (1.4-8.2); EOSINOPHILS 1.3 % (0.0-3.0); HEMATOCRIT 34.1 % (37.0-47.0); HEMOGLOBIN 11.2 gm/dL (12.0-15.0); LYMPHOCYTES 17.2 % (24.0-44.0); MCH 31.8 pg (26.0-34.0); MCHC 32.8 g/dL (28.0-37.0); MCV 97.1 fL (80.0-100.0); MONOCYTES 11.9 % (1.0-8.0); PLATELET COUNT 195 thou/uL (150-400); POLYS 68.6 % (36.0-66.0); RBC 3.52 mil/uL (4.20-5.00); RDW 13.8 % (10.5-14.5); WBC 8.1 thou/uL (4.0-11.0)
--- NOTE | 2020-01-02 11:10 | HC ---
[facility] [place] [address] CONSULTATION Name: YOJANA PRESSLEY Room #: 513-P ADM IN M.R.#: [id number] Admission: 12/27/19 Attend Phys: Lavon Tejeda MD Discharge: Date of : 32 Report #: [id number] THIS REPORT FOR: cc: Camryn Gutierrez,Peter Worley PhD ~ CC: Camryn Tejeda DATE OF SERVICE: 12/31/2019 NEUROBEHAVIORAL STATUS EXAM ATTENDING PHYSICIAN: Lavon Tejeda M.D. CROP DUSTER HELPER: Peter Grimes, PhD CLINICAL PRESENTATION: The patient is an 89-year-old white female that was admitted to [facility] after being found on the ground at her home by her daughter. The patient does not recall the event and intermittent confusion is present. An MRI is reported to have been negative along with the CT scan. The patient did have a history of a left lacunar CVA in 2015. Her medical problem list includes acute torticollis, altered mental status, ankle pain, aphasia, arterial insufficiency of lower extremity, AFib, contusion, CVA, elevated troponin, fall, fatigue, fluid depletion, forgetfulness, hyponatremia, knee pain in the right, peripheral artery disease, right ankle pain and syncope. Her assessment on admission to the rehabilitation unit was closed head injury, status post fall, syncopal event, AFib with rapid ventricular response now controlled, history of a left lacunar infarction, PAD/CAD, hypokalemia, severe PCM, right lower extremity leg wound, mild PAM resolved and a mild B12 deficiency. A complete description of her medical condition and history along with medications can be found in her medical record. Neuropsychological consultation was requested to provide assistance in the assessment of cognitive and emotional status and to provide recommendations and services. Prior to this most recent admission, she was living independently in her own home. The patient has 4 children. Two children live nearby. The patient is reported to have required assistance with cooking. However, she was managing her own bills and medication management. She is a high school graduate and was employed for the [employer] prior to her alf. Her daughter indicates that before the fall the patient is reported to have had trouble with verbal fluency and word finding. She was intermittently having episodes of disorientation with slurred speech about 2 weeks prior to the admission. TECHNIQUES UTILIZED: Clinical interview, review of medical records, staff [address] [address] CONSULTATION Name: YOJANA PRESSLEY Room #: 513-P [facility] IN .R.#: [id number] Admission: 12/27/19 Attend Phys: Lavon Tejeda MD Discharge: Date of : 32 Report #: [id number] consultation and behavioral observation, mini mental status exam 2 standard version, clock drawing and family interview - daughter. EXAMINATION FINDINGS: The patient was alert and cooperative with the assessment. She was able to indicate the reason for her hospitalization as a fall. However, she had periods of disorientation and confusion during the interview. Her response time was very slow and evidence of perseveration was noted. Symptoms of anxiety and depression are described and likely the result being in an unfamiliar environment and hospitalization. Decreased insight into subjective symptoms of cognition is noted. As indicated anxiety and depression are likely consequences of this most recent occurrence. Her performance on the MMSE 2 brief version was extremely low with a raw score of 7 of 16. She was 3 of 3 for initial registration, 3 of 5 for orientation at time, 1 of [address] and 0 of 3 for immediate recall of 3 items after a brief time delay and distraction. As indicated, perseveration was noted during her response to exam questions. Performance on the MMSE 2 standard version was extremely low with a raw score of 14 of 30. She was 0 of 5 for serial sevens, 2 of 2 for naming, 1 of 1 for repetition, 3 of 3 for auditory comprehension. She could read and follow a single command. She was unable to write a sentence or copy a simple geometric design. Severe impairment with clock drawing was noted both for number placement and poor visual spatial construction and perseverative numbering. The patient is presenting with severe impairment in cognitive functioning. Current deficits are severe in orientation, immediate recall, attention/concentration, executive functioning and visual spatial construction. DIAGNOSTIC IMPRESSION: Delirium, mixed level of activity, acute. Major neurocognitive disorder (dementia), unspecified, with decreased insight - extent to be determined Adjustment disorder with anxious mood. RECOMMENDATIONS: Her presentation suggests an underlying neurodegenerative disorder that is amplified by her current medical condition. As her delirium resolves, cognitive functioning should improve, but not at her pre-morbid level. The patient will require an increase supervision upon discharge that includes assistance with medication, finances and nutrition. Her daughter indicates plans to have the patient return to her home and provide the necessary [facility] [address] [place] [address] CONSULTATION Name: YOJANA PRESSLEY Room #: 513-P ADM IN Carlos.Loan.#: [id number] Admission: 12/27/19 Attend Phys: Lavon Tejeda MD Discharge: Date of : 32 Report #: [id number] supervision and structure. If the patient and family are interested in further evaluation of neurocognitive functioning, outpatient neuropsychological testing can be arranged. Thank you very much for allowing me to provide the consultation on this patient. <ELECTRONICALLY SIGNED> By: Peter Grimes, PhD 01/02/20 1110 1236 [id number] Peter Grimes, PhD /nt
--- NOTE | 2020-01-02 11:54 | NUR ---
ASSUMED CARES AT 0700. PT AWAKE, ORIENTED TO PERSON AND SITUATION, FORGETFUL AND IMPULSIVE. DENIES PAIN AT THIS TIME. VITALS REMAIN STABLE. ASPIRATION PRECAUTION MAINTAINED, PT SITTING 90 DEGREES DURING ALL MEALS AND DRINKS. WOUND ON RLE CLEANED AND DRESSING CHANGED. PRAFO BOOTS ON WHEN IN BED, CONTINUES TO HAVE BOGGY HEELS. PT UP WITH 1 SBA, GB AND WALKER AND TOLERATED WELL. Q1H VISUAL CHECKS. CALL LIGHT WITHIN REACH. FALL PRECAUTIONS IN PLACE
[2020-01-02 13:38] VITALS: BP 116/54
--- NOTE | 2020-01-02 13:49 | NUR ---
team meeting, reccommendation: diet puree with thin liquids. dc 25th with hh ( pt, ot, st, nursing). no dme needs.
--- NOTE | 2020-01-03 04:10 | NUR ---
ASSUMED CARE OF PT AT 1915 ON 01/02/20. PT IS ORIENTED TO SELF. HAS BEEN SLEEPING SINCE THE START OF THE SHIFT. PT IS EASILY ARROUSABLE. AWAKENS & CALLS OUT TO USE THE BATHROOM. IS ATKA. DENIES PAIN. IS STABLE. DRSG TO SACRUM & RLE C/D/I. PT IS UP WITH 1 ASSIST, GB, WALKER. FALL PRECAUTIONS & HOURLY ROUNDING CONTINUED THIS SHIFT. LABS & VITALS REVIEWED. WILL CONTINUE TO MONITOR. PT IS CURRENTLY RESTING IN BED. JUST RETURNED FROM RESTROOM. HAS HAD 2 BMS THIS SHIFT. CALL LITHT WITHIN REACH.
[2020-01-03 08:00] VITALS: BP 126/63
[2020-01-03 14:10] LABS: URINE BILIRUBIN NEGATIVE (Negative); URINE BLOOD TRACE (Negative); URINE CLARITY CLEAR; URINE COLOR YELLOW; URINE GLUCOSE-RANDOM* NEGATIVE (Negative); URINE KETONES NEGATIVE (Negative); URINE LEUKOCYTES 1+ (Negative); URINE NITRITE POSITIVE (Negative); URINE PROTEIN (DIPSTICK) NEGATIVE (Negative)
--- NOTE | 2020-01-03 14:17 | NUR ---
pt daughter isabell called stated ok have [facility] and 2nd would be [facility] rt dr ruffin and dr anthony. cm education [facility] helps set up service and is not just h[facility] ok then [facility] will be 1st choice. referral sent. will cont following as needed for dc needs.
--- NOTE | 2020-01-03 14:21 | NUR ---
ASSUMED CARES AT 0700. PT SLEEPY, ORIENTED TO PERSON AND SITUATION, FORGETFUL AND IMPULSIVE. DENIES PAIN. VITALS REMAIN STABLE. PT CONTINUES TO HAVE BRUISING ON ARMS AND BLE. WOUND 0N RLE CLEANED AND DRESSING CHANGED. PRAFO BOOTS ON WHEN IN BED. PT'S URINE HAS STRONG ODOR, PT HAD FREQUENCY OVERNIGHT, UA COLLECTED AWAITING RESULTS. PT UP WITH 1 MIN ASSIST, GB AND WALKER AND TOLERATED WELL. SWALLOW PRECAUTIONS MAINTAINED. FREQ. VISUAL CHECKS. CALL LIGHT WITHIN REACH. FALL PRECAUTIONS IN PLACE
[2020-01-03 14:50] LABS: CASTS None Seen /LPF (None Seen); CRYSTALS None Seen /LPF (None Seen); SQUAMOUS 0-3 Few /LPF (0-3)
[2020-01-03 14:51] LABS: BACTERIA >30 Many /HPF (None Seen)
[2020-01-03 14:52] LABS: WBC CLUMPS Few (None Seen)
[2020-01-03 14:53] LABS: URINE RBC None Seen /HPF (0-2)
[2020-01-03 15:41] VITALS: BP 129/71
[2020-01-03 19:14] VITALS: BP 101/54
--- NOTE | 2020-01-04 01:52 | NUR ---
ASSESSED AT START OF SHIFT, PT RESTING IN BED. A&OX2. GETS UP TO USE THE BATHROOM WITHOUT CALLING. FALL PRECAUTIONS IN PLACE. UP WITH SBA AND WALKER. EVENING MEDS GIVEN AND PT JULIET WELL. SLEPT THROUGH THE NIGHT. OPTIFOAM DRESSING ON RT FOOT C/D/I WILL CONT WITH POC TILL EOS.
[2020-01-04 08:00] VITALS: BP 109/63
--- NOTE | 2020-01-04 11:10 | NUR ---
ASSUMED CARE AT 0700. PT GETS IMPULSIVE AND STARTS TO GET UP ON HER OWN TO USE THE BATHROOM. SHE IS PLEASANTLY CONFUSED AND EASILY REORIENTATED. DENIES ANY PAIN. UP TO THE CHAIR WITH HER MEALS AND TOOK ALL MEDS WITH THIN LIQUID WITHOUT ANY DIFFICULTY. PARTICIPATING WITH THERAPY AND PROGRESSING TOWARDS GOAL. DAUGHTER, MALIA IS HERE FOR FAMILY TRAINING WITH THERAPY. DRESSING TO R LE DONE AND FOAM BOOT APPLIED TO FEET. PLAN FOR DISCHARGE HOME TOMORROW WITH DAUGHTER.
[2020-01-04 20:07] VITALS: BP 115/52
--- NOTE | 2020-01-05 02:44 | NUR ---
assumed care approx 1900 evening 01/03. pt lying in bed with head of bed elevated at change of shift. pt impulsive and climbing out of bed at shift change needing to go to the bathroom. pt assisted and back to bed. pt took hs meds with magic cup tolerating well. pt appears to be sleeping soundly with hourly rounding checks. bed alarm on and call light in reach. will continue to monitor.
[2020-01-05 05:10] VITALS: BP 157/93
[2020-01-05 08:00] VITALS: BP 137/67
[2020-01-05] MEDS ORDERED: CARDIZEM60 MG PO (08:17)
[2020-01-05] MEDS ORDERED: ATENOLOL 25 MG25 M1 PO (08:17)
[2020-01-05] MEDS ORDERED: CIPROFLOXACIN250 M2 PO (08:17)
[2020-01-05] MEDS ORDERED: COLACE100 MG PO (08:17)
[2020-01-05 10:55] VITALS: BP 129/71
--- NOTE | 2020-01-05 12:48 | NUR ---
PT DISCHARGING TODAY TO HOME WITH [facility] FAXED DC ORDERS/SUMMARY RECEIVED CONFIRMATION AND LEFT MSG WITH INTAKE.
[2020-01-05 13:00] VITALS: BP 129/71
--- NOTE | 2020-01-05 13:01 | NUR ---
ASSUMED CARE AT 0700. PT IS ALERT AND ORIENTATED TO SELF AND PLACE. CONFUSED BUT EASILY REORIENTATED. DENIES ANY PAIN. UP WITH STANDBY ASSIST. ATE 100% OF HER MEALS AND TOOK ALL MEDS WITH APPLE SAUCE. NO CONCERNS. DRESSING TO RLE DONE. DISCHARGE INSTRUCTIONS GIVEN TO DAUGHTER, MALIA. PT LEFT UNIT AT 1300 WITH DAUGHTER.
== END 2020-01-05 13:07 | disposition home health service (06) | DRG 91 ==
PROVIDERS: Nurse Practitioner; ADMIT Physical Medicine & Rehabilitation; ATTEND Physical Medicine & Rehabilitation
DX: G92 Toxic encephalopathy (principal); E43 Unspecified severe protein-calorie malnutrition; I48.21 Permanent atrial fibrillation; D68.59 Other primary thrombophilia; N17.9 Acute kidney failure, unspecified; N39.0 Urinary tract infection, site not specified; S09.90XA Unspecified injury of head, initial encounter; R53.81 Other malaise; R55 Syncope and collapse; I25.10 Atherosclerotic heart disease of native coronary artery without angina pectoris; I10 Essential (primary) hypertension; E78.00 Pure hypercholesterolemia, unspecified; J44.9 Chronic obstructive pulmonary disease, unspecified; R13.10 Dysphagia, unspecified; E87.6 Hypokalemia; E83.42 Hypomagnesemia; I73.9 Peripheral vascular disease, unspecified; Z66 Do not resuscitate; L89.156 Pressure-induced deep tissue damage of sacral region; R41.0 Disorientation, unspecified; F43.22 Adjustment disorder with anxiety; F01.50 Vascular dementia, unspecified severity, without behavioral disturbance, psychotic disturbance, mood disturbance, and anxiety; F17.210 Nicotine dependence, cigarettes, uncomplicated; M19.90 Unspecified osteoarthritis, unspecified site; I65.29 Occlusion and stenosis of unspecified carotid artery; B96.20 Unspecified Escherichia coli [E. coli] as the cause of diseases classified elsewhere; E53.8 Deficiency of other specified B group vitamins; W18.39XA Other fall on same level, initial encounter; Z86.73 Personal history of transient ischemic attack (TIA), and cerebral infarction without residual deficits; Y93.89 Activity, other specified; Y92.89 Other specified places as the place of occurrence of the external cause; Y99.8 Other external cause status; Z71.6 Tobacco abuse counseling; Z88.6 Allergy status to analgesic agent; Z88.0 Allergy status to penicillin; Z88.2 Allergy status to sulfonamides; Z88.7 Allergy status to serum and vaccine; Z90.710 Acquired absence of both cervix and uterus; Z83.3 Family history of diabetes mellitus; Z82.49 Family history of ischemic heart disease and other diseases of the circulatory system
CPT/HCPCS: 10112

== ENCOUNTER → 2020-01-23 | Outpatient (CLI) | payer OTHER, MEDICARE ==
[~2020-01-23] MED LIST changes: +ATENOLOL 100MG100 MG PO; +CIPROFLOXACIN250 M2 PO
== END ==
LOC: SJCVCIMAG 07:05
PROVIDERS: ATTEND Internal Medicine Cardiovascular Disease
DX: I70.203 Unspecified atherosclerosis of native arteries of extremities, bilateral legs (principal); R94.31 Abnormal electrocardiogram [ECG] [EKG]; I48.21 Permanent atrial fibrillation; I25.10 Atherosclerotic heart disease of native coronary artery without angina pectoris; I10 Essential (primary) hypertension; E78.00 Pure hypercholesterolemia, unspecified; I77.9 Disorder of arteries and arterioles, unspecified; J44.9 Chronic obstructive pulmonary disease, unspecified; F17.210 Nicotine dependence, cigarettes, uncomplicated; Z95.828 Presence of other vascular implants and grafts; Z79.899 Other long term (current) drug therapy

== ENCOUNTER → 2020-01-24 | Outpatient (CLI) | payer OTHER, MEDICARE ==
[~2020-01-24] VITALS: Ht 167.6 cm; Wt 49.9 kg
[2020-01-24 08:46] LABS: HEMATOCRIT 40.9 % (37.0-47.0); HEMOGLOBIN 13.1 gm/dL (12.0-15.0); MCHC 32.1 g/dL (28.0-37.0); MCV 96.5 fL (80.0-100.0); RBC 4.24 mil/uL (4.20-5.00); RDW 14.4 % (10.5-14.5); WBC 8.1 thou/uL (4.0-11.0)
[2020-01-24 08:54] VITALS: BP 164/85
[2020-01-24 08:56] LABS: CALCIUM 9.4 mg/dL (8.5-10.1); CREATININE 1.1 mg/dL (0.6-1.0); POTASSIUM 4.6 mmol/L (3.5-5.1)
== END | disposition home or self-care (01) ==
LOC: CATH 06:25
PROVIDERS: ATTEND Nuclear Medicine Nuclear Cardiology
DX: I70.222 Atherosclerosis of native arteries of extremities with rest pain, left leg (principal); I70.1 Atherosclerosis of renal artery; I10 Essential (primary) hypertension; E78.5 Hyperlipidemia, unspecified; I25.10 Atherosclerotic heart disease of native coronary artery without angina pectoris; I48.91 Unspecified atrial fibrillation; K21.9 Gastro-esophageal reflux disease without esophagitis; J44.9 Chronic obstructive pulmonary disease, unspecified; M19.90 Unspecified osteoarthritis, unspecified site; F17.210 Nicotine dependence, cigarettes, uncomplicated; Z98.890 Other specified postprocedural states; Z79.899 Other long term (current) drug therapy; Z90.710 Acquired absence of both cervix and uterus; Z85.828 Personal history of other malignant neoplasm of skin; Z86.73 Personal history of transient ischemic attack (TIA), and cerebral infarction without residual deficits; Z79.01 Long term (current) use of anticoagulants

== ENCOUNTER → 2020-02-21 | Outpatient (CLI) | payer OTHER, MEDICARE ==
[~2020-02-21] MED LIST changes: +CHILDREN'S ASPI81 M1 PO
== END ==
LOC: SJCVCIMAG 10:02
PROVIDERS: ATTEND Internal Medicine Cardiovascular Disease
DX: I70.202 Unspecified atherosclerosis of native arteries of extremities, left leg (principal); I25.10 Atherosclerotic heart disease of native coronary artery without angina pectoris; I77.9 Disorder of arteries and arterioles, unspecified; I48.91 Unspecified atrial fibrillation; I10 Essential (primary) hypertension; E78.00 Pure hypercholesterolemia, unspecified; J44.9 Chronic obstructive pulmonary disease, unspecified

== ENCOUNTER 2020-02-22 10:55 | Emergency (ER) | payer OTHER, MEDICARE ==
[~2020-02-22] VITALS: Ht 167.6 cm; Wt 49.4 kg
[~2020-02-22 10:55] MED LIST changes: -CHILDREN'S ASPI81 M1 PO
[2020-02-22] MEDS ORDERED: CHILDREN'S ASPI81 M1 PO (12:18)
[2020-02-22 13:09] VITALS: BP 150/82
== END 2020-02-22 13:00 | disposition home or self-care (01) ==
LOC: ER 10:55
DX: S80.02XA Contusion of left knee, initial encounter (principal); S80.01XA Contusion of right knee, initial encounter; S40.011A Contusion of right shoulder, initial encounter; I10 Essential (primary) hypertension; I25.10 Atherosclerotic heart disease of native coronary artery without angina pectoris; E78.5 Hyperlipidemia, unspecified; I73.9 Peripheral vascular disease, unspecified; I48.91 Unspecified atrial fibrillation; J44.9 Chronic obstructive pulmonary disease, unspecified; M19.90 Unspecified osteoarthritis, unspecified site; Z90.711 Acquired absence of uterus with remaining cervical stump; Z90.89 Acquired absence of other organs; Z79.899 Other long term (current) drug therapy; Z79.82 Long term (current) use of aspirin; Z88.0 Allergy status to penicillin; Z88.5 Allergy status to narcotic agent; Z88.7 Allergy status to serum and vaccine; V89.2XXA Person injured in unspecified motor-vehicle accident, traffic, initial encounter; Y93.89 Activity, other specified; Y92.488 Other paved roadways as the place of occurrence of the external cause; Y99.8 Other external cause status

== ENCOUNTER 2020-03-16 10:52 | Inpatient (IN) | payer OTHER, MEDICARE ==
[~2020-03-16] VITALS: Ht 167.6 cm; Wt 50.8 kg
--- NOTE | ~2020-03-16 | EEG ---
[facility] [place] [address] ELECTROENCEPHALOGRAM Name: YOJANA PRESSLEY Room #: 435-P ADM IN M.R.#: [id number] Admission: 03/16/20 Attend Phys: Carmelo Haynes MD Discharge: Date of : 32 Report #: [id number] THIS REPORT FOR: //name// CC: Camryn Haynes DATE OF SERVICE: 03/18/2020 This patient is being evaluated for altered mental status. EEG was done by placing the electrode by standard 10-20 system of electrode placement. Both referential and sequential montages were used for recording. Background activity is about 8 Hz and 30 microvolts. The patient became drowsy and that is associated with bilaterally symmetrical sleep spindle and vertex sharp waves. Throughout the record, no active epileptiform activity was noticed. IMPRESSION: Moderately abnormal EEG because it is disorganized and poorly formed and somewhat slow. That is a nonspecific finding, which can occur with dementia, encephalopathy, effect of psychotropic medication, etc. Clinical correlation is recommended. By: [id number] Ho Pérez MD /nt
[~2020-03-16 10:52] MED LIST changes: +CHILDREN'S ASPI81 M1 PO
[2020-03-16 11:38] VITALS: BP 136/60
[2020-03-16 11:44] LABS: ABSOLUTE NEUTROPHILS 7.3 thou/uL (1.4-8.2); BASOPHILS 0.6 % (0.0-2.0); EOSINOPHILS 0.7 % (0.0-3.0); HEMATOCRIT 39.2 % (37.0-47.0); HEMOGLOBIN 12.9 gm/dL (12.0-15.0); LYMPHOCYTES 11.1 % (24.0-44.0); MCH 30.8 pg (26.0-34.0); MCHC 32.9 g/dL (28.0-37.0); MCV 93.6 fL (80.0-100.0); MONOCYTES 4.6 % (1.0-8.0); PLATELET COUNT 204 thou/uL (150-400); RBC 4.19 mil/uL (4.20-5.00); RDW 15.2 % (10.5-14.5); WBC 8.8 thou/uL (4.0-11.0)
[2020-03-16] MEDS ORDERED: CARDIZEM SR 60M60 MG PO (11:47)
[2020-03-16 12:34] LABS: URINE BILIRUBIN NEGATIVE (Negative); URINE BLOOD 1+ (Negative); URINE CLARITY SL HAZY; URINE COLOR YELLOW; URINE GLUCOSE-RANDOM* NEGATIVE (Negative); URINE KETONES NEGATIVE (Negative); URINE LEUKOCYTES-REFLEX NEGATIVE (Negative); URINE NITRITE-REFLEX NEGATIVE (Negative); URINE PROTEIN (DIPSTICK) NEGATIVE (Negative); URINE SPECIFIC GRAVITY >= 1.030 (1.005-1.035); URINE UROBILINOGEN 0.2 E.U./dl (0.2-1.0)
[2020-03-16 12:45] LABS: CASTS None Seen /LPF (None Seen); SQUAMOUS >10 Many /LPF (0-3)
[2020-03-16 12:46] LABS: ALBUMIN 3.6 g/dL (3.4-5.0); CREATININE 1.3 mg/dL (0.6-1.0); DIRECT BILIRUBIN 0.2 mg/dL (<0.1-0.2); POTASSIUM 3.9 mmol/L (3.5-5.1); TOTAL BILIRUBIN 0.4 mg/dL (0.2-1.0)
[2020-03-16 12:46] LABS: CRYSTALS None Seen /LPF (None Seen); URINE RBC 0-2 Rare /HPF (0-2); URINE WBC-REFLEX 0-5 Rare /HPF (0-5)
[2020-03-16 12:51] LABS: CALCIUM 9.9 mg/dL (8.5-10.1)
[2020-03-16 16:36] VITALS: BP 133/99
[2020-03-16 17:46] VITALS: BP 148/87
--- NOTE | 2020-03-16 19:27 | EKG ---
[facility] [place] [address] ELECTROCARDIOGRAM REPORT Name: YOJANA PRESSLEY Room #: 435-P ADM IN M.R.#: [id number] Admission: 03/16/20 Attend Phys: Carmelo Haynes MD Discharge: Date of : 32 Report #: [id number] THIS REPORT FOR: cc: Camryn Gutierrez Beth RNP Lundgren, Craig H. MD [facility] ~ THIS REPORT FOR: //name// [facility] ED Test Date: 2020-03-16 Test Time: 11:25:05 Pat Name: YOJANA PRESSLEY Department: Room: [facility] Gender: F Major Assembly Inspector: RADHA : 1930 Requested By: Ritika Schumacher Order Number: [id number] MD: Israel Gayle Measurements Intervals [place] Rate: 81 P: IN: QRS: 96 QRSD: 86 T: QT: 370 QTc: 430 Interpretive Statements Atrial fibrillation Right axis deviation Nonspecific repol abnormality, diffuse leads Compared to ECG 12/24/2019 11:22:42 No significant change was found Electronically Signed On 03-16-2020 19:26:50 RAND CEMENTER by Israel Gayle [email or web address] <ELECTRONICALLY SIGNED> By: Israel Gayle MD, [facility] 03/16/20 1926 1125 1125 Israel Gayle MD, [facility] /EPI
[2020-03-16 19:31] VITALS: BP 117/57
--- NOTE | 2020-03-16 20:02 | NUR ---
Admitted pt. to unit in the late afternoon. Pt. was calm and cooperative. Pt. able to ambulate with assistance from cart to bed. Daughter was called for Admin. information. Fall precautions in place.
--- NOTE | 2020-03-17 02:24 | NUR ---
ASSESSED AT START OF SHIFT. PT RESTING IN BED. IV INTACT AND FLUIDS INFUSING. UPX1 TO BSC WITH SOME INCONTINENCE. VSS. FALL PREC IN PLACE AND CALL LIGHT AT REACH WILL CONT WITH POC TILL EOS.
[2020-03-17 03:36] VITALS: BP 122/62
[2020-03-17 05:03] LABS: CALCIUM 8.7 mg/dL (8.5-10.1); CREATININE 1.2 mg/dL (0.6-1.0); POTASSIUM 3.5 mmol/L (3.5-5.1)
[2020-03-17 05:15] LABS: HEMATOCRIT 34.9 % (37.0-47.0); HEMOGLOBIN 11.5 gm/dL (12.0-15.0); MCH 30.6 pg (26.0-34.0); MCV 92.5 fL (80.0-100.0); RBC 3.77 mil/uL (4.20-5.00); RDW 15.1 % (10.5-14.5); WBC 7.5 thou/uL (4.0-11.0)
[2020-03-17 07:16] VITALS: BP 129/66
--- NOTE | 2020-03-17 10:04 | NUR ---
ASSUMED CARE AT 0700. PT IS A&O X3. PT IS NOT CONFUSED. PT IS PLEASANT AND IS ABLE TO CONTROL CONVERSATION. VSS. SCD HOSE ARE IN PLACE. LEFT AC IV IS RUNNING AT 75 ML PER HOUR AND SHOWS NO SIGNS OF REDNESS OR SWELLING. FALL PRECAUTION. CALL LIGHT WITHIN REACH. PT DENIES ANY PAIN, N/V, SOA. PT UNDERSTANDS TO USE THE CALL LIGHT WHEN SHE WANTS TO GET UP. WILL CONTINUE TO MONITOR FOR PAIN
[2020-03-17 13:52] LABS: CHOLESTEROL 124 mg/dL (<200); HDL CHOLESTEROL 64 mg/dL (>40); LDL CHOLESTEROL 43 mg/dL (<100); TC:HDL 1.9 Ratio (Not establshd); TRIGLYCERIDE 85 mg/dL (<150); VLDL 17 mg/dL (<40)
[2020-03-17 16:05] VITALS: BP 144/74
[2020-03-17 18:50] VITALS: BP 148/73
[2020-03-18 01:06] LABS: GLYCOHEMOGLOBIN (HGB A1C) 5.8 % (4.8-5.6)
[2020-03-18 03:39] VITALS: BP 180/116
--- NOTE | 2020-03-18 04:24 | NUR ---
PATIENT ALERT AND ORIENTED X4. IVF INFUSING W/O COMPLICATION. CONFUSION AT TIMES. PATIENT WILL NOT USE HER CALL BUTTON TO USE THE BSC. BED ALARM ACTIVATED AND USED THROUGHOUT THE NIGHT. PATIENT WILL HAVE A MRI - HEAD TODAY. RESTING QUIETLY. WILL MONITOR.
[2020-03-18 07:00] VITALS: BP 145/65
--- NOTE | 2020-03-18 09:50 | NUR ---
Assumed care of pt at 0700. Pt implulsive but follows commands. SBA. MRI scheduled. Awaiting on MRI. Fall precautions in place. Will continue to monitor.
[2020-03-18 12:23] VITALS: BP 145/65
--- NOTE | 2020-03-18 12:25 | NUR ---
Case opened to follow for dc planning. Pt known to cm from previous admission in the fall. She was dc'd to home in Dec 2019 with HH services through [facility] . Die Cast Technician visited with the pt briefly at bedside. She is going down for an MRI. She reports no current HH services again but would like to use [facility] again. HH recommendations noted from therapy. Dc sales planner to send referral to [facility]. Possible dc home later today pending her MRI results. Message left for her dtr Denise to call regarding HH referral and possible dc later today. The pt lives with her dtr and provides supervision and IADL support as needed. She has a rwalker for home use and 3 steps to enter the home. Will follow.
[2020-03-18 15:11] VITALS: BP 145/65
--- NOTE | 2020-03-18 16:34 | NUR ---
FAXED REFERRAL TO [facility] SPOKE WITH [facility] IN INTAKE SHE RECEIVED REFERRAL AND WILL ACCEPT AT DC. PT TO DC TO HOME WITH HH TODAY FAXED DC ORDERS/SUMMARY RECEIVED CONFIRMATION AND THEY WILL CALL PT TO ARRANGE VISITS.
--- NOTE | 2020-03-18 18:25 | NUR ---
ASSUMED CAREA T 1030. PT IS AX0 2-3. PT HAS DIMINISHED LUNG SOUNDS. SCD HOSE ARE IN PLACE. FALL PRECAUTION. SPOKE TO TIFFANIETHER MALIA. PT HAS GIVEN ME THE OKAY TO GIVE CODE TO HER DAUGTHER, MALIA. PT IS CONSTANTLY GETTING UP AND LETTING THE BED ALARM GO OFF. I EXPLAINED TO PT THAT SHE CANNOT GET UP. PT UNDERSTOODS BUT WILL GET UP AGAIN. PT DENIES ANY PAIN, SOA, N/V,DIZXZINESS. HER DAUGHTER YOJANA WILL PICK HER UP. IV ON AC IS INTACT AND SHOWS NO SIGNS OF REDNESS OR SWELLING. WILL CONTINUE TO MONITOR. PT WAS D/C AT 1600. IV WAS D/C
== END 2020-03-18 16:32 | disposition home health service (06) | DRG 71 ==
LOC: ER 10:52 → 4S 14:54 → EROBS 14:54 → 4S 17:06
PROVIDERS: Emergency Medicine; Psychiatry & Neurology Neurology; ADMIT Hospitalist; ATTEND Hospitalist
DX: G93.41 Metabolic encephalopathy (principal); N39.0 Urinary tract infection, site not specified; I48.20 Chronic atrial fibrillation, unspecified; Z68.1 Body mass index [BMI] 19.9 or less, adult; I25.10 Atherosclerotic heart disease of native coronary artery without angina pectoris; J44.9 Chronic obstructive pulmonary disease, unspecified; I10 Essential (primary) hypertension; E78.5 Hyperlipidemia, unspecified; I73.9 Peripheral vascular disease, unspecified; M19.90 Unspecified osteoarthritis, unspecified site; R63.4 Abnormal weight loss; G47.00 Insomnia, unspecified; N39.3 Stress incontinence (female) (male); Z90.710 Acquired absence of both cervix and uterus; Z90.49 Acquired absence of other specified parts of digestive tract; Z79.899 Other long term (current) drug therapy; Z88.6 Allergy status to analgesic agent; Z88.1 Allergy status to other antibiotic agents; Z88.0 Allergy status to penicillin; Z88.2 Allergy status to sulfonamides; Z88.7 Allergy status to serum and vaccine; Z87.891 Personal history of nicotine dependence; Z86.73 Personal history of transient ischemic attack (TIA), and cerebral infarction without residual deficits
CPT/HCPCS: 10195

== ENCOUNTER → 2020-04-23 | Outpatient (CLI) | payer OTHER, MEDICARE ==
[~2020-04-23] MED LIST changes: +CARDIZEM SR 60M60 MG PO
== END ==
LOC: SJCVC 11:37 → SJCVCIMAG 11:38 → SJCVC 11:38
PROVIDERS: ATTEND Nuclear Medicine Nuclear Cardiology
DX: I70.203 Unspecified atherosclerosis of native arteries of extremities, bilateral legs (principal); I77.9 Disorder of arteries and arterioles, unspecified; I48.91 Unspecified atrial fibrillation; I25.10 Atherosclerotic heart disease of native coronary artery without angina pectoris; I10 Essential (primary) hypertension; E78.00 Pure hypercholesterolemia, unspecified; J44.9 Chronic obstructive pulmonary disease, unspecified; F17.210 Nicotine dependence, cigarettes, uncomplicated; Z90.710 Acquired absence of both cervix and uterus; Z98.890 Other specified postprocedural states; Z95.828 Presence of other vascular implants and grafts; Z88.8 Allergy status to other drugs, medicaments and biological substances; Z79.82 Long term (current) use of aspirin; Z79.899 Other long term (current) drug therapy; Z82.49 Family history of ischemic heart disease and other diseases of the circulatory system

== ENCOUNTER → 2020-04-25 | Outpatient (CLI) | payer OTHER, MEDICARE ==
[~2020-04-25] VITALS: Ht 167.6 cm; Wt 49.0 kg
[2020-04-25 07:13] VITALS: BP 175/99
[2020-04-25 07:57] LABS: HEMATOCRIT 41.7 % (37.0-47.0); HEMOGLOBIN 13.6 gm/dL (12.0-15.0); MCH 30.9 pg (26.0-34.0); MCHC 32.6 g/dL (28.0-37.0); MCV 94.5 fL (80.0-100.0); RBC 4.41 mil/uL (4.20-5.00); RDW 16.3 % (10.5-14.5); WBC 7.2 thou/uL (4.0-11.0)
[2020-04-25 08:04] LABS: CALCIUM 9.7 mg/dL (8.5-10.1); CREATININE 1.2 mg/dL (0.6-1.0); POTASSIUM 4.2 mmol/L (3.5-5.1)
== END | disposition home or self-care (01) ==
LOC: CATH 06:59
PROVIDERS: ATTEND Nuclear Medicine Nuclear Cardiology
DX: I70.212 Atherosclerosis of native arteries of extremities with intermittent claudication, left leg (principal); I70.1 Atherosclerosis of renal artery; I10 Essential (primary) hypertension; I25.10 Atherosclerotic heart disease of native coronary artery without angina pectoris; E78.5 Hyperlipidemia, unspecified; I48.91 Unspecified atrial fibrillation; J44.9 Chronic obstructive pulmonary disease, unspecified; M19.90 Unspecified osteoarthritis, unspecified site; K21.9 Gastro-esophageal reflux disease without esophagitis; F17.210 Nicotine dependence, cigarettes, uncomplicated; Z98.890 Other specified postprocedural states; Z79.899 Other long term (current) drug therapy; Z86.73 Personal history of transient ischemic attack (TIA), and cerebral infarction without residual deficits; Z85.828 Personal history of other malignant neoplasm of skin; Z90.710 Acquired absence of both cervix and uterus; Z79.01 Long term (current) use of anticoagulants

== ENCOUNTER → 2020-05-02 | Outpatient (CLI) | payer OTHER, MEDICARE ==
[~2020-05-02] VITALS: Ht 167.6 cm; Wt 49.0 kg
[2020-05-02 07:22] VITALS: BP 175/106
== END | disposition home or self-care (01) ==
LOC: CATH 06:53
PROVIDERS: ATTEND Nuclear Medicine Nuclear Cardiology
DX: I70.221 Atherosclerosis of native arteries of extremities with rest pain, right leg (principal); I70.1 Atherosclerosis of renal artery; I10 Essential (primary) hypertension; I25.10 Atherosclerotic heart disease of native coronary artery without angina pectoris; I48.91 Unspecified atrial fibrillation; J44.9 Chronic obstructive pulmonary disease, unspecified; E78.5 Hyperlipidemia, unspecified; M19.90 Unspecified osteoarthritis, unspecified site; K21.9 Gastro-esophageal reflux disease without esophagitis; Z98.890 Other specified postprocedural states; Z79.899 Other long term (current) drug therapy; Z86.73 Personal history of transient ischemic attack (TIA), and cerebral infarction without residual deficits; Z90.710 Acquired absence of both cervix and uterus; Z85.828 Personal history of other malignant neoplasm of skin; Z79.01 Long term (current) use of anticoagulants

== ENCOUNTER → 2020-07-09 | Outpatient (CLI) | payer OTHER, MEDICARE ==
[~2020-07-09] MED LIST changes: +DILTIAZEM ER120 MG PO
== END ==
LOC: SJCVCIMAG 09:54
PROVIDERS: ATTEND Internal Medicine Cardiovascular Disease
DX: I65.23 Occlusion and stenosis of bilateral carotid arteries (principal); R94.31 Abnormal electrocardiogram [ECG] [EKG]; I70.202 Unspecified atherosclerosis of native arteries of extremities, left leg; R00.0 Tachycardia, unspecified; I11.9 Hypertensive heart disease without heart failure; I49.49 Other premature depolarization; I44.0 Atrioventricular block, first degree; I77.9 Disorder of arteries and arterioles, unspecified; I25.10 Atherosclerotic heart disease of native coronary artery without angina pectoris; J44.9 Chronic obstructive pulmonary disease, unspecified; E78.00 Pure hypercholesterolemia, unspecified; I48.21 Permanent atrial fibrillation; I35.0 Nonrheumatic aortic (valve) stenosis; F17.210 Nicotine dependence, cigarettes, uncomplicated; Z95.1 Presence of aortocoronary bypass graft; Z98.890 Other specified postprocedural states; Z95.828 Presence of other vascular implants and grafts; Z90.710 Acquired absence of both cervix and uterus; Z88.0 Allergy status to penicillin; Z88.8 Allergy status to other drugs, medicaments and biological substances; Z79.82 Long term (current) use of aspirin; Z79.899 Other long term (current) drug therapy; Z82.49 Family history of ischemic heart disease and other diseases of the circulatory system

== ENCOUNTER 2020-07-13 13:17 | Inpatient (IN) | payer OTHER, MEDICARE ==
[~2020-07-13] VITALS: Ht 162.6 cm; Wt 49.4 kg
--- NOTE | ~2020-07-13 | HC ---
[facility] [place] [address] CONSULTATION Name: YOJANA PRESSLEY Room #: 352-P [facility] IN M.R.#: [id number] Admission: 07/13/20 Attend Phys: Viviana Durham MD Discharge: 07/15/20 Date of : 34 Report #: [id number] THIS REPORT FOR: cc: Camryn Gutierrez Beth RNP Smithson, David G. MD ~ DATE OF SERVICE: 07/15/2020 HISTORY OF PRESENT ILLNESS: The patient is an 89-year-old white female previously known to me, who was admitted this time to [facility] with left facial drooping. She was noted to have slurred speech and acute mental status changes. She was thought to have either a small stroke versus an apparent TIA. Neurology has been involved. The patient has a history of atrial fibrillation, was on Eliquis, but with gastrointestinal bleed, Eliquis was stopped and changed to Plavix. The patient feels like she is doing better and feels like she is back at her baseline. We are seeing her in rehabilitation medicine consultation. PAST MEDICAL HISTORY: Her prior medical history includes a fall with closed head injury in 12/2020 for which she underwent an acute inpatient rehabilitation stay. She had a prior left lacunar infarct in 2014. She has a history of atrial fibrillation, history of coronary artery disease, hyperlipidemia, peripheral arterial disease, COPD, degenerative arthritis, tobacco abuse, peripheral vascular disease, fem-pop left lower extremity. MEDICATIONS: Please see the full medication listing. ALLERGIES: PENICILLIN, CODEINE, SULFA AND TETANUS. SOCIAL HISTORY: Lives with her daughter, although the daughter is currently out of town and another daughter had been staying with her. She utilizes a front-wheeled walker. All IADLs were provided by the family. REVIEW OF SYSTEMS: No current complaints of chest pain, shortness of breath or abdominal discomfort. Denies any further symptoms of weakness of her left face. PHYSICAL EXAMINATION: GENERAL: She is a pleasant, thin 89-year-old white female in no obvious distress. She is alert, pleasant, and oriented. VITAL SIGNS: Last recorded temperature is 97.2, pulse 79, respirations 15, blood pressure 138/65. HEENT: Appeared to be benign. She may have a slight depressed left nasolabial fold. Face is otherwise appeared symmetric. NEUROLOGIC: She is able to verbalize reasonably well and follow basic commands. She has functional range of motion of both upper and lower extremities. [address] [address] CONSULTATION Name: YOJANA PRESSLEY Room #: 352-P [facility] IN [facility].#: [id number] Admission: 07/13/20 Attend Phys: Viviana Durham MD Discharge: 07/15/20 Date of : 32 Report #: [id number] Strength appeared to be symmetric. I would grade at least 4+/5. DTRs are trace to 1. Tone appeared to be intact. She has been up with occupational therapy with supervision for toilet transfers and toileting. She was able to ambulate back to the bed with supervision. No loss of balance with ambulation, was able to manage her clothing prior to toileting. She utilizes a roller walker with ambulation. She demonstrates safe standing balance to perform her ADLs at the sink, noted to safely manage her clothing and standing. It is noted that she does not have impulsivity. ASSESSMENT: An 89-year-old white female with the following problem list: 1. Transient ischemic attack with some left-sided weakness that appears to be resolved. She appears to be back to her baseline from a functional perspective. 2. History of atrial fibrillation, noted to be permanent. 3. History of gastrointestinal bleeding. 4. Coronary artery disease. 5. Hypertension. 6. Hypercholesterolemia. 7. Carotid artery disease. 8. History of chronic obstructive pulmonary disease. 9. History of tobacco usage. PLAN: Occupational therapy has already discharged her from therapy. The patient feels she is back to her baseline, would anticipate at this point that she would be able to return back to her home setting once her medical workup is completed. We will nevertheless continue to follow along with you while she is here in the hospital. Thank you for asking us to assist in this patient's care. By: [id number] Lavon Tejeda MD /nt
--- NOTE | ~2020-07-13 | HC ---
[facility] [address] [place] [address] CONSULTATION Name: YOJANA PRESSLEY Room #: 352-P ADM IN M.R.#: [id number] Admission: 07/13/20 Attend Phys: Viviana Durham MD Discharge: Date of : 32 Report #: [id number] THIS REPORT FOR: cc: Camryn Gutierrez Beth RNP Mancuso, Gerald M. MD FACC ~ DATE OF SERVICE: 07/13/2020 NO DICTATION By: 1034 [id number] Dakota Joy MD, FACC /nt
[~2020-07-13 13:17] MED LIST changes: -DILTIAZEM ER120 MG PO
[2020-07-13 13:22] VITALS: BP 120/71
[2020-07-13] MEDS ORDERED: DILTIAZEM ER120 MG PO (13:33)
[2020-07-13 13:50] LABS: ABSOLUTE NEUTROPHILS 4.8 thou/uL (1.4-8.2); BASOPHILS 1.1 % (0.0-2.0); HEMATOCRIT 40.7 % (37.0-47.0); HEMOGLOBIN 13.2 gm/dL (12.0-15.0); LYMPHOCYTES 25.1 % (24.0-44.0); MCH 31.3 pg (26.0-34.0); MCHC 32.5 g/dL (28.0-37.0); MCV 96.3 fL (80.0-100.0); MONOCYTES 7.6 % (1.0-8.0); PLATELET COUNT 197 thou/uL (150-400); POLYS 64.2 % (36.0-66.0); RBC 4.23 mil/uL (4.20-5.00); RDW 14.7 % (10.5-14.5); WBC 7.4 thou/uL (4.0-11.0)
[2020-07-13 13:55] LABS: ANION GAP 11 mmol/L (7-16); BUN 21 mg/dL (7-18); CALCIUM 8.7 mg/dL (8.5-10.1); CHLORIDE 106 mmol/L (98-107); CO2 27 mmol/L (21-32); CREATININE 1.3 mg/dL (0.6-1.0); GLUCOSE 97 mg/dL (74-106); POTASSIUM 4.2 mmol/L (3.5-5.1); SODIUM 144 mmol/L (136-145)
[2020-07-13 14:05] LABS: ALBUMIN 3.4 g/dL (3.4-5.0); SGOT 22 U/L (15-37); SGPT 18 U/L (14-59); TOTAL BILIRUBIN 0.4 mg/dL (0.2-1.0); TOTAL PROTEIN 6.7 g/dL (6.4-8.2); TROPONIN-I <0.06 ng/mL (<0.06)
[2020-07-13 14:22] LABS: URINE BILIRUBIN NEGATIVE (Negative); URINE BLOOD NEGATIVE (Negative); URINE CLARITY CLEAR; URINE COLOR YELLOW; URINE GLUCOSE-RANDOM* NEGATIVE (Negative); URINE KETONES NEGATIVE (Negative); URINE LEUKOCYTES-REFLEX NEGATIVE (Negative); URINE NITRITE-REFLEX NEGATIVE (Negative); URINE PROTEIN (DIPSTICK) NEGATIVE (Negative); URINE SPECIFIC GRAVITY 1.025 (1.005-1.035); URINE UROBILINOGEN 0.2 E.U./dl (0.2-1.0)
[2020-07-13 15:30] LABS: APTT 26.8 Seconds (24.5-32.8); INR 1.02; PROTIME 11.1 Seconds (9.3-11.4)
[2020-07-13 15:56] VITALS: BP 128/62
[2020-07-13 16:09] VITALS: BP 145/74
--- NOTE | 2020-07-13 18:36 | NUR ---
PT ADMITTED TO [facility] IN ROOM 352, PT ALERT AND ORIENTED X4, DENIES CHEST PAIN, NAUSEA AND VOMITTING. [facility] ASSESSMENT COMPLETED, SCORE OF ZERO. WANT AD RECEIVER PLACED. ADMISSION AND ASSSESSMENT COMPLETED. SKIN INTACT. PT ORIENTED TO ROOM. CALL LIGHT AND TABLE WITHIN REACH. BED AT LOWEST ELEVL WITH ALARM ON. FALL PRECAUTIONS IN PLACE. CONSENTS SIGNED BY PT. DR. CHANDLER PAGED ABOUT PT DIET STATUS, GAVE ORDERS FOR HEART HEALTHY DIET. PT DAUGHTER CALLED AND UPDATED ABOUT PT CARE.
[2020-07-13 19:34] VITALS: BP 130/79
--- NOTE | 2020-07-13 22:09 | NUR ---
PT ALERT AND ORIENTED X4. VSS AFEBRILE. UNLABOREDON RA. NO C/O PAIN. ANSWERED [facility] APPROPRIATELY. FOLLOED ALL STEPS. BED DOWN. CALL LIGHT IN REACH. BED ALARM ON. NO S/S DISTRESS.
[2020-07-13 23:30] VITALS: BP 159/67
[2020-07-14 04:10] LABS: CHOLESTEROL 106 mg/dL (<200); HDL CHOLESTEROL 63 mg/dL (>40); LDL CHOLESTEROL 31 mg/dL (<100); TC:HDL 1.7 Ratio (Not establshd); TRIGLYCERIDE 60 mg/dL (<150); VLDL 12 mg/dL (<40)
[2020-07-14 04:12] LABS: SERUM ASSESSMENT Clear
[2020-07-14 04:15] VITALS: BP 127/69
--- NOTE | 2020-07-14 05:42 | NUR ---
PT PROGRESSING WELL TOWARDS D/C GOALS. VSS AFEBRILE. NO S/S TIAS OR CVA TONIGHT. WALKS TO BR WITH WALKER AND STANDBY ASSISTANCE OF 1 PERSON.
[2020-07-14 07:55] VITALS: BP 141/57
[2020-07-14 09:20] VITALS: BP 137/61
[2020-07-14 10:13] LABS: CALCIUM 8.8 mg/dL (8.5-10.1); CREATININE 1.3 mg/dL (0.6-1.0); POTASSIUM 4.4 mmol/L (3.5-5.1)
[2020-07-14 11:09] VITALS: BP 135/77
[2020-07-14 15:11] VITALS: BP 137/61
--- NOTE | 2020-07-14 18:30 | NUR ---
RN ASSUMED PT'S CARE AT 0700AM, PT IS A&OX3 , PT IS ON ROOM AIR , PT'S VS ARE STABLE, PT IS BACK TO HER BASELINE, NO FURTHER EPISODE OF TIA BY THIS TIME, PT'S NIH STROKE SCALE IS 0, PT GETS UP TO BATH ROOM WITH WALKER, PT DENIES PAIN AND SOB, PT IS GOING TO HAVE MRI HEAD TOMORROW .
[2020-07-14 19:26] VITALS: BP 145/64
--- NOTE | 2020-07-14 22:11 | NUR ---
PT PROGRESSING WELL TOWARDS D/C GOALS. VSS AFEBRILE. NIH 0. NO C/O CP, SOA, OR DIZZINESS. EXREMITES STRENGTH WNL. AMBULATES TO BR WITH WALKER AND ASSISTANCE OF 1 NURSE. DENIED PAIN. WILL CONTINUE TO MONITOR PT FOR CHANGES.
[2020-07-15 04:05] LABS: GLYCOHEMOGLOBIN (HGB A1C) 5.7 % (4.8-5.6)
[2020-07-15 04:13] VITALS: BP 124/51
--- NOTE | 2020-07-15 07:20 | EKG ---
[address] [employer] [place] [address] ELECTROCARDIOGRAM REPORT Name: YOJANA PRESSLEY Room #: 352-P ADM IN M.R.#: [id number] Admission: 07/13/20 Attend Phys: Viviana Durham MD Discharge: Date of : 32 Report #: [id number] [facility] ED Test Date: 2020-07-13 Test Time: 14:02:47 Pat Name: YOJANA PRESSLEY Department: Room: 352 Gender: F [employer] Manufacturing Supervisor: MARIA DE JESUS : 1930 Requested By: Kate Hook Order Number: [id number] MD: Nicolas Flores Measurements Intervals [place] Rate: 79 P: [place]: QRS: 72 QRSD: 130 T: 44 QT: 392 QTc: 450 Interpretive Statements Atrial fibrillation Nonspecific intraventricular conduction delay Compared to ECG 03/16/2020 11:25:05 Intraventricular conduction delay now present ST (T wave) deviation now present Right-axis deviation no longer present Early repolarization no longer present Electronically Signed On 07-15-2020 7:20:43 CDT by Nicolas Flores [email or web address] <ELECTRONICALLY SIGNED> By: Nicolas Flores MD, [facility] 07/15/20 0720 140 140 Nicolas Flores MD, [facility] /EPI
[2020-07-15 07:37] VITALS: BP 138/65
--- NOTE | 2020-07-15 10:19 | 2DMMODE ---
[facility] [place] [address] 2 D/M-MODE ECHOCARDIOGRAM Name: YOJANA PRESSLEY Room #: 352-P ADM IN M.R.#: [id number] Admission: 07/13/20 Attend Phys: Viviana Durham MD Discharge: Date of : 32 Report #: [id number] THIS REPORT FOR: cc: Camryn Gutierrez Beth RNP Lammoglia, Francisco J. MD ~ APPROVED REPORT Study performed: 07/15/2020 08:49:04 EXAM: Comprehensive 2D, Doppler, and color-flow Echocardiogram Patient Location: Bedside BSA: 1.51 HR: 80 bpm BP: 138/65 mmHg Rhythm: Atrial Fibrillation Other Information Study Quality: Good Indications COPD Atrial Fibrillation Hypertension/HDD 2D Dimensions IVSd: 9.39 (7-11mm) LVOT Diam: 18.78 (18-24mm) LVDd: 37.63 mm PWd: 8.51 (7-11mm) Ascending Ao: 34.13 (22-36mm) LVDs: 29.20 (25-40mm) Left Atrium: 50.09 (27-40mm) Aortic Root: 26.96 mm IVC: 17.00 mm Volumes Left Atrial Volume (Systole) Single Plane 4CH: 71.62 mL Single Plane 2CH: 103.58 mL LA ESV Index: 65.00 mL/m2 Aortic Valve AoV Peak Red.: 1.25 m/s AO Peak Gr.: 6.20 mmHg LVOT Max P.09 mmHg LVOT Max V: 0.72 m/s CHIDI Vmax: 1.61 cm2 [facility] [address] [place] [address] 2 D/M-MODE ECHOCARDIOGRAM Name: YOJANA PRESSLEY Room #: 352-P ADM IN .R.#: [id number] Admission: 07/13/20 Attend Phys: Carlos Larose Discharge: Date of : 32 Report #: [id number] Pulmonary Valve PV Peak Red.: 0.82 m/s PV Peak Gr.: 2.67 mmHg Tricuspid Valve TR Peak Red.: 2.68 m/s TR Peak Gr.: 28.80 mmHg PA Pressure: 39.00 mmHg Left Ventricle The left ventricle is normal size. There is normal LV segmental wall motion. There is normal left ventricular wall thickness. The left ventricular systolic function is normal. The left ventricular ejection fraction is within the normal range. LVEF is 55-60%. This study is not technically sufficient to allow evaluation of the LV diastolic function due to atrial fibrillation. Right Ventricle The right ventricle is normal size. The right ventricular systolic function is normal. Atria Left atrium is dilated. Right atrium is dilated. Aortic Valve The aortic valve is normal in structure.Mild focal echodensities noted No aortic regurgitation is present. There is no aortic valvular stenosis. Mitral Valve The mitral valve is normal in structure. Moderate to severe mitral regurgitation with an eccentric jet. No evidence of mitral valve stenosis. Tricuspid Valve The tricuspid valve is normal in structure. There is moderate tricuspid regurgitation. Estimated PAP 39 mmHg. There is mild pulmonary hypertension. Pulmonic Valve The pulmonary valve is normal in structure. There is no pulmonic valvular regurgitation. Great Vessels The aortic root is normal in size. IVC is normal in size and collapses <50% with inspiration. [facility] [address] [place] [address] 2 D/M-MODE ECHOCARDIOGRAM Name: HUANAAYUSH Room #: 352-P ADM IN M.R.#: [id number] Admission: 07/13/20 Attend Phys: Carlos Larose Discharge: Date of : 32 Report #: [id number] Pericardium Moderate circumferential pericardial effusion without evidence of tamponade. <Conclusion> The left ventricle is normal size. There is normal left ventricular wall thickness. LVEF is 55-60%. Left atrium is dilated. Right atrium is dilated. The aortic valve is normal in structure.Mild focal echodensities noted No aortic regurgitation is present. The mitral valve is normal in structure. Moderate to severe mitral regurgitation with an eccentric jet. The tricuspid valve is normal in structure. There is moderate tricuspid regurgitation. Estimated PAP 39 mmHg. There is mild pulmonary hypertension. The pulmonary valve is normal in structure. The aortic root is normal in size. Moderate circumferential pericardial effusion without evidence of tamponade. <ELECTRONICALLY SIGNED> By: Jeramy White MD 07/15/20 1019 [id number] Jeramy White MD /INF
[2020-07-15 13:15] VITALS: BP 138/65
[2020-07-15 15:59] VITALS: BP 150/80
--- NOTE | 2020-07-15 18:23 | NUR ---
RN ASSUMED PT'S CARE AT 0700AM, PT IS A&OX3, PT IS BACK TO BASELINE, PT'S VS ARE STABLE, NO S/S OF CVA, RN HAS CALLED NEUROLOGY DR AND HOSPITAL DR TO REPORT PT'S MRI TEST RESULTS, PT IS OK TO DC HOME , RN GAVE PT'S AND PT'S DAUGHYER DC TEACHING , THEY UNDERSTANDED WELL, PT'S DAUGHTER MEDICAL TRANSCRIPTION RADIOLOGY PT TO HOME AT ABOUT 1700PM.
== END 2020-07-15 16:30 | disposition home or self-care (01) | DRG 69 ==
LOC: ER 13:17 → 3W 16:10 → EROBS 16:17 → 3W 16:29
PROVIDERS: Emergency Medicine; ADMIT Hospitalist; ATTEND Hospitalist
DX: G45.9 Transient cerebral ischemic attack, unspecified (principal); N17.9 Acute kidney failure, unspecified; D68.59 Other primary thrombophilia; G81.94 Hemiplegia, unspecified affecting left nondominant side; I48.21 Permanent atrial fibrillation; I25.10 Atherosclerotic heart disease of native coronary artery without angina pectoris; I10 Essential (primary) hypertension; E78.5 Hyperlipidemia, unspecified; I73.9 Peripheral vascular disease, unspecified; I48.91 Unspecified atrial fibrillation; E78.00 Pure hypercholesterolemia, unspecified; E11.9 Type 2 diabetes mellitus without complications; I08.3 Combined rheumatic disorders of mitral, aortic and tricuspid valves; D64.9 Anemia, unspecified; J44.9 Chronic obstructive pulmonary disease, unspecified; Z86.73 Personal history of transient ischemic attack (TIA), and cerebral infarction without residual deficits; Z90.710 Acquired absence of both cervix and uterus; Z85.828 Personal history of other malignant neoplasm of skin; Z79.01 Long term (current) use of anticoagulants; Z79.82 Long term (current) use of aspirin; Z79.899 Other long term (current) drug therapy; Z88.5 Allergy status to narcotic agent; Z88.0 Allergy status to penicillin; Z88.2 Allergy status to sulfonamides; Z88.7 Allergy status to serum and vaccine; Z87.891 Personal history of nicotine dependence
CPT/HCPCS: 10779; 10879

== ENCOUNTER → 2020-08-22 | Outpatient (CLI) | payer OTHER, MEDICARE ==
[~2020-08-22] MED LIST changes: +DILTIAZEM ER120 MG PO
== END ==
LOC: SJCVC 14:33
PROVIDERS: ATTEND Internal Medicine Cardiovascular Disease
DX: R94.31 Abnormal electrocardiogram [ECG] [EKG] (principal); I48.21 Permanent atrial fibrillation; I10 Essential (primary) hypertension; E78.00 Pure hypercholesterolemia, unspecified; I25.10 Atherosclerotic heart disease of native coronary artery without angina pectoris; I65.23 Occlusion and stenosis of bilateral carotid arteries; D64.9 Anemia, unspecified; J44.9 Chronic obstructive pulmonary disease, unspecified; I70.76 Atherosclerosis of other type of bypass graft(s) of the extremities with gangrene; F17.210 Nicotine dependence, cigarettes, uncomplicated; Z90.710 Acquired absence of both cervix and uterus; Z98.890 Other specified postprocedural states; Z88.0 Allergy status to penicillin; Z88.2 Allergy status to sulfonamides; Z88.5 Allergy status to narcotic agent; Z88.8 Allergy status to other drugs, medicaments and biological substances; Z79.82 Long term (current) use of aspirin; Z79.899 Other long term (current) drug therapy; Z86.73 Personal history of transient ischemic attack (TIA), and cerebral infarction without residual deficits; Z82.49 Family history of ischemic heart disease and other diseases of the circulatory system

== ENCOUNTER → 2020-10-29 | Outpatient (CLI) | payer OTHER, MEDICARE | LOC: SJCVCIMAG 10:04 | PROVIDERS: ATTEND Nuclear Medicine Nuclear Cardiology | DX: I70.203 Unspecified atherosclerosis of native arteries of extremities, bilateral legs (principal); I70.362 Atherosclerosis of unspecified type of bypass graft(s) of the extremities with gangrene, left leg; I77.9 Disorder of arteries and arterioles, unspecified; I48.91 Unspecified atrial fibrillation; I25.10 Atherosclerotic heart disease of native coronary artery without angina pectoris; I10 Essential (primary) hypertension; E78.00 Pure hypercholesterolemia, unspecified; J44.9 Chronic obstructive pulmonary disease, unspecified; F17.210 Nicotine dependence, cigarettes, uncomplicated; Z79.82 Long term (current) use of aspirin; Z79.899 Other long term (current) drug therapy; Z88.5 Allergy status to narcotic agent; Z88.0 Allergy status to penicillin; Z88.2 Allergy status to sulfonamides; Z88.1 Allergy status to other antibiotic agents; Z95.820 Peripheral vascular angioplasty status with implants and grafts ==

== ENCOUNTER 2020-11-16 12:56 | Inpatient (IN) | payer OTHER, MEDICARE ==
[~2020-11-16] VITALS: Ht 165.1 cm; Wt 49.6 kg
[2020-11-16] VITALS (15 sets, daily range): BP systolic 118–151; BP diastolic 56–79
[2020-11-16 13:33] LABS: ABSOLUTE NEUTROPHILS 10.5 thou/uL (1.4-8.2); BASOPHILS 0.7 % (0.0-2.0); EOSINOPHILS 0.9 % (0.0-3.0); HEMATOCRIT 37.1 % (37.0-47.0); HEMOGLOBIN 12.3 gm/dL (12.0-15.0); LYMPHOCYTES 10.1 % (24.0-44.0); MCH 31.4 pg (26.0-34.0); MCHC 33.2 g/dL (28.0-37.0); MCV 94.6 fL (80.0-100.0); MONOCYTES 12.5 % (1.0-8.0); PLATELET COUNT 274 thou/uL (150-400); POLYS 75.8 % (36.0-66.0); RBC 3.93 mil/uL (4.20-5.00); WBC 13.9 thou/uL (4.0-11.0)
[2020-11-16] MEDS ORDERED: TENORMIN25 MG PO (13:35)
[2020-11-16] MEDS ORDERED: VITAMIN B-121000 MC2 PO (13:36)
[2020-11-16 13:42] LABS: CALCIUM 8.4 mg/dL (8.5-10.1); CREATININE 1.1 mg/dL (0.6-1.0); POTASSIUM 3.8 mmol/L (3.5-5.1)
--- NOTE | 2020-11-16 18:45 | NUR ---
PATIENT MOVING TOWARDS OUTCOME GOALS SLOWLY. WANTING TO TURN ON TO SIDE. GROIN SITE STABLE. RT FOOT COOL WITH FAINT PEDAL AND PALPABLE POST TIBIAL PULSES.
--- NOTE | 2020-11-16 19:53 | NUR ---
1610 PATIENT ADMITTED TO 245 PER CART FROM THE QUALITY PROCESS ENGINEER POST PROCEDURE WITH LEFT GROIN SHEATH IN PLACE WITH NO HEMATOMA NOTED IN GROIN SITE. ASSESSMENT COMPLETED PLEASE REFER TO ASSESSMENT. RT FOOT COOLER THAN RT IN QUALITY PROCESS ENGINEER. PATIENT STATES THAT FOOT FEELS BETTER. PLACED IN ENHANCED PRECAUTIONS PATIENT HAD TESTED POSITIVE 11/01/20 AND HAD BEEN FULLY VACCINATED
[2020-11-16 21:58] LABS: HEMATOCRIT 34.2 % (37.0-47.0); HEMOGLOBIN 11.2 gm/dL (12.0-15.0); MCH 31.1 pg (26.0-34.0); MCHC 32.7 g/dL (28.0-37.0); RBC 3.6 mil/uL (4.20-5.00); RDW 13.7 % (10.5-14.5); WBC 12.9 thou/uL (4.0-11.0)
[2020-11-17] VITALS (37 sets, daily range): BP systolic 99–160; BP diastolic 51–85
--- NOTE | 2020-11-17 07:35 | NUR ---
UNEVENTFUL NIGHT, TPA AND INTERGRILLIN INFUSING, LEFT GROIN SITE C/D/I NO HEMATOMA, SOFT TO TOUCH, SLIGHT BRUISING. VITALS WNL, BEDSIDE REPORT GIVEN TO TARYN WESTFALL
[2020-11-17 07:49] LABS: HEMATOCRIT 35.4 % (37.0-47.0); MCH 31.9 pg (26.0-34.0); MCHC 33.9 g/dL (28.0-37.0); MCV 94.3 fL (80.0-100.0); RBC 3.76 mil/uL (4.20-5.00); RDW 13.7 % (10.5-14.5); WBC 10.7 thou/uL (4.0-11.0)
[2020-11-17 07:56] LABS: CALCIUM 8.2 mg/dL (8.5-10.1)
--- NOTE | 2020-11-17 08:35 | NUR ---
0825HRS - PT'S DAUGHTER CALLED AND WAS UPDATED ON PT STATUS. REPORTED COVID TEST RESULTS.
--- NOTE | 2020-11-17 09:38 | NUR ---
0920HRS - TRANSPORTED TO PROCEDURE PREPARED AND ESCORTED BY RN X2 AND TECH.
--- NOTE | 2020-11-17 12:03 | NUR ---
1150HRS - PT ARRIVED BY BED FROM PROCEDURE ESCORTED BY RN AND TECH. B/L PEDIAL PULSES WITH SIGNAL NOTED USING DOPPLER. B/L POSTERIOR TIBIALA PULSES NOTED USING DOPPLER. PT REPORTED FEELING SORENESS NOT L GROIN AREA. EDUCATED ARE REMINDED PT OF THE IMPORTANCE OF KEEP BOTH LEGS STRAIGHT AND IN BEDREST. PT RESPONDED WITH "YES".
--- NOTE | 2020-11-17 12:07 | NUR ---
1207HRS - CALLED DAUGHTER (YOJANA) AND NOTIFED THAT THE PROCEDURE WENT WELL. UPDATED DAUGHTER ON PT'S STATUS AND CONDITION.
--- NOTE | 2020-11-17 16:40 | NUR ---
1640HRS - CONTACT DR. VARGAS IN REFERENCE TO TRANSFER AND CONSULTING ID FOR HER COVID+ RESULTS. WAS TOLD TO CONTACT DR. BIRCH AND WILL NOT BE CONSULTNG ID, DUE TO NOT TREATING HER COVID+.
--- NOTE | 2020-11-17 17:01 | NUR ---
1701HRS - PT'S DAUGHTER CALLED AND WAS UPDATED ON PT'S STATUS.
--- NOTE | 2020-11-17 22:17 | NUR ---
PT TRANSFERING OUT OF ICU TO CCU 215, PT ALERT AND ORIENTED, CAME OF BEDREST PRECAUTIONS AT 1999, SAT UP IN BED AND ATE DINNER. LEFT GROIN, SOFT ,TENDER TO TOUCH, NO HEMATOMA. REPORT GIVEN TO MALIA WESTFALL
[2020-11-18 02:57] LABS: HEMATOCRIT 35.1 % (37.0-47.0); HEMOGLOBIN 11.7 gm/dL (12.0-15.0); MCH 31.7 pg (26.0-34.0); MCHC 33.3 g/dL (28.0-37.0); MCV 95.2 fL (80.0-100.0); RBC 3.69 mil/uL (4.20-5.00); RDW 13.6 % (10.5-14.5); WBC 13.1 thou/uL (4.0-11.0)
[2020-11-18 03:16] LABS: ALBUMIN 2.2 g/dL (3.4-5.0); CALCIUM 8.1 mg/dL (8.5-10.1); CREATININE 1.2 mg/dL (0.6-1.0); POTASSIUM 3.8 mmol/L (3.5-5.1); TOTAL BILIRUBIN 0.4 mg/dL (0.2-1.0); TOTAL PROTEIN 5.5 g/dL (6.4-8.2)
[2020-11-18 04:52] VITALS: BP 132/73
[2020-11-18 08:00] VITALS: BP 137/84
--- NOTE | 2020-11-18 08:13 | NUR ---
PT TRANSFERED TO CCU ROOM 215, ASSESSMENT CHARTED , VSS, NO C/O PAIN, LEFT GROIN DRESSING REMAINS CDI, RESTING QUIETLY IN ROOM TURNING SELF IN BED, WILL CON'T TO MONITOR PER PPOC.
[2020-11-18 09:06] VITALS: BP 137/84
--- NOTE | 2020-11-18 11:55 | NUR ---
PT ALERT AND ORIENTED TIMES FOUR. VSS, PT DENIES PAIN/SOA. PT TOLERATES MEDS AND BREASKFAST THIS MORNING. PT UP TO BSC WITH ASSIST OF ONE. SPOKE TO PT DAUGHTER TO UPDATE ON CARE. PLANS FOR DISCHARGE TODAY. WILL CONTINUE TO MONITOR.
== END 2020-11-18 12:50 | disposition home or self-care (01) | DRG 252 ==
LOC: ER 12:56 → EROBS 16:12 → 2N 16:12 → ICU 16:12 → 2N 11-17 23:05
PROVIDERS: Emergency Medicine; Nuclear Medicine Nuclear Cardiology; ADMIT Hospitalist; ATTEND Hospitalist
PROC: 3E05317 Introduction of Other Thrombolytic into Peripheral Artery, Percutaneous Approach (ICD-10-PCS; principal; 2020-11-16)
PROC: B41D1ZZ Fluoroscopy of Aorta and Bilateral Lower Extremity Arteries using Low Osmolar Contrast (ICD-10-PCS; principal; 2020-11-16)
PROC: B4181ZZ Fluoroscopy of Bilateral Renal Arteries using Low Osmolar Contrast (ICD-10-PCS; principal; 2020-11-16)
PROC: 047M3ZZ Dilation of Right Popliteal Artery, Percutaneous Approach (ICD-10-PCS; 2020-11-17)
PROC: 047K3DZ Dilation of Right Femoral Artery with Intraluminal Device, Percutaneous Approach (ICD-10-PCS; 2020-11-17)
PROC: 3E05317 Introduction of Other Thrombolytic into Peripheral Artery, Percutaneous Approach (ICD-10-PCS; 2020-11-17)
DX: I73.9 Peripheral vascular disease, unspecified (principal); U07.1 COVID-19; R65.11 Systemic inflammatory response syndrome (SIRS) of non-infectious origin with acute organ dysfunction; I77.1 Stricture of artery; I48.91 Unspecified atrial fibrillation; I25.10 Atherosclerotic heart disease of native coronary artery without angina pectoris; E78.5 Hyperlipidemia, unspecified; J44.9 Chronic obstructive pulmonary disease, unspecified; I99.8 Other disorder of circulatory system; E78.00 Pure hypercholesterolemia, unspecified; F17.210 Nicotine dependence, cigarettes, uncomplicated; I12.9 Hypertensive chronic kidney disease with stage 1 through stage 4 chronic kidney disease, or unspecified chronic kidney disease; N18.30 Chronic kidney disease, stage 3 unspecified; Z85.828 Personal history of other malignant neoplasm of skin; Z90.710 Acquired absence of both cervix and uterus; Z86.73 Personal history of transient ischemic attack (TIA), and cerebral infarction without residual deficits; Z79.01 Long term (current) use of anticoagulants; Z79.899 Other long term (current) drug therapy; Z88.0 Allergy status to penicillin; Z88.2 Allergy status to sulfonamides; Z88.7 Allergy status to serum and vaccine
CPT/HCPCS: 10078; 10081; 50455